=== PATIENT | female | born 1995 | race Caucasian/White ===

== ENCOUNTER 2017-03-22 07:39 | Emergency (ER) | payer OTHER ==
[2017-03-22] MEDS ORDERED: KETOROLAC 60 MG/2 ML VIAL IM STA (08:11)
--- NOTE | 2017-03-22 08:21 | ED ---
Back Pain HPI - General Chief Complaint: Back Pain/Injury Stated Complaint: [facility] Time Seen by Provider: 03/22/17 08:07 Source: patient, RN notes reviewed Limitations: no limitations - History of Present Illness Initial Comments: 21-year-old female presents to the emergency department with a chief complaint of back pain. 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 Patient states that it hurts to move or sit in certain directions. He states it is in her lower back. Patient states that she did not feel a pop. Patient denies any bowel or bladder incontinence. Patient denies any saddle anesthesia. Patient denies any radiation down the legs. Patient states he just feels tight in her back so she thought that she should be evaluated. Patient denies any recent fever, chills, shortness of breath, chest pain, abdominal pain, nausea vomiting, numbness or tingling, dysuria or hematuria, constipation or diarrhea, headaches or visual changes, or any other current symptoms. - Related Data Previous Rx's Medication Instructions Recorded Ibuprofen [Motrin] 600 mg PO Q6HR PRN #20 tab 03/22/17 Orphenadrine [Norflex] 100 mg PO Q12H #10 tablet.er 03/22/17 Allergies Allergy/AdvReac Type Severity Reaction Status Date / Time No Known Allergies Allergy Verified 03/22/17 07:44 Review of Systems ROS Statement: Those systems with pertinent positive or pertinent negative responses have been documented in the HPI. ROS Other: All systems not noted in ROS Statement are negative. Past Medical History Past Medical History: No Reported History History of Any Multi-Drug Resistant Organisms: None Reported Past Surgical History: No Surgical Hx Reported Past Psychological History: No Psychological Hx Reported Smoking Status: Never smoker Past Alcohol Use History: None Reported Past Drug Use History: None Reported General Exam Limitations: no limitations General appearance: alert, in no apparent distress ENT exam: Present: normal exam, mucous membranes moist Neck exam: Present: normal inspection. Absent: tenderness, meningismus, lymphadenopathy Respiratory exam: Present: normal lung sounds bilaterally. Absent: respiratory distress, wheezes, rales, rhonchi, stridor Cardiovascular Exam: Present: regular rate, normal rhythm, normal heart sounds. Absent: systolic murmur, diastolic murmur, rubs, gallop, clicks GI/Abdominal exam: Present: soft, normal bowel sounds. Absent: distended, tenderness, guarding, rebound, rigid Back exam: Present: normal inspection, full ROM, tenderness (Bilateral paraspinal lumbar region), muscle spasm (Bilateral lumbar region), other ( Negative straight leg raise). Absent: vertebral tenderness, rash noted Neurological exam: Present: alert, oriented X3 Psychiatric exam: Present: normal affect, normal mood Skin exam: Present: warm, dry, intact, normal color. Absent: rash Course Vital Signs 03/22/17 07:44 Temperature 98.3 F Pulse Rate 90 Respiratory 20 Rate Blood Pressure 125/72 O2 Sat by Pulse 99 Oximetry Medical Decision Making - Medical Decision Making 21-year-old female presents emergency Department chief complaint of low back pain after lifting a resident. This time x-rays reviewed negative. We discussed additional structures flexor home. We did discuss close follow-up with Dr. katja tirado. We discussed all the patient's questions. She stated that she understood and she is being planned. She'll be discharged - Radiology Data Radiology results: report reviewed, image reviewed Disposition Clinical Impression: Lumbar strain Disposition: HOME SELF-CARE Condition: Stable Instructions: Low Back Strain (ED), Lower Back Exercises (ED) Additional Instructions: Please use medication as discussed. Please follow up with family doctor if symptoms have not improved over the next two days. Please return to the emergency room if your symptoms increase or worsen or for any other concerns. Prescriptions: Ibuprofen [Motrin] 600 mg PO Q6HR PRN #20 tab PRN Reason: Pain Orphenadrine [Norflex] 100 mg PO Q12H #10 tablet.er Referrals: Esther Little MD [Primary Care Provider] - 1-2 days Time of Disposition: 08:53
[2017-03-22] MEDS: ORPHENADRINE 30 MG/ML 2 ML VIAL IM STA ×2 (08:28→08:36)
--- NOTE | 2017-03-22 08:47 | XR ---
EXAMINATION TYPE: XR lumbar spine 2 or 3V DATE OF EXAM: 03/22/2017 COMPARISON: NONE HISTORY: Pain TECHNIQUE: Three-view lumbar spine FINDINGS: There 5 lumbar-type vertebral bodies. The pedicles are intact. Disc heights are preserved. Vertebral body heights are preserved. Limbus vertebra at L4 is present. IMPRESSION: 1. No acute osseous abnormality lumbar spine
[2017-03-22 09:10] VITALS: BP 132/68; PULSE 81; RESP 16; TEMP 97.1
== END 2017-03-22 09:15 | disposition home or self-care (01) ==
LOC: EC 07:39
DX: S39.012A Strain of muscle, fascia and tendon of lower back, initial encounter (principal); M62.830 Muscle spasm of back; X50.0XXA Overexertion from strenuous movement or load, initial encounter; Y99.0 Civilian activity done for income or pay; Y92.69 Other specified industrial and construction area as the place of occurrence of the external cause
CPT/HCPCS: 72100; 99283; 96372; J1885

== ENCOUNTER → 2017-06-17 | Outpatient (CLI) | payer SELFPAY ==
--- NOTE | 2017-06-17 12:35 | US ---
EXAMINATION TYPE: US OB <= 14 wk fetus DATE OF EXAM: 06/17/2017 COMPARISON: NONE CLINICAL HISTORY: Z36 f/u abn US 6 weeks no heartbeat. 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 Single intrauterine gestation estimated at 6 weeks 2 days gestation based on crown-rump length. Ca rdiac activity measures 118 bpm. EDC based on the current ultrasound is 02/08/2018
== END | disposition home or self-care (01) ==
LOC: RADUSWWP 11:09
PROVIDERS: ATTEND Obstetrics & Gynecology
DX: Z36 Encounter for antenatal screening of mother (principal); Z3A.08 8 weeks gestation of pregnancy
CPT/HCPCS: 76801

== ENCOUNTER 2017-07-26 18:00 | Inpatient (IN) | payer BC ==
[2017-07-26] MEDS ORDERED: METOCLOPRAMIDE 5 MG/ML 2 ML VIAL IVP STA (18:27)
[2017-07-26] MEDS ORDERED: SODIUM CHLORIDE 0.9% 2,000 ML IV STA (18:27)
[2017-07-26] MEDS ORDERED: FAMOTIDINE 20 MG/2 ML VIAL IV STA (18:58)
[2017-07-26 18:59] LABS: Basophils % (A) 0 %; CH 28.8; CHCM 34.3; Eosinophils # (A) 0.1 k/uL (0-0.7); Eosinophils % (A) 2 %; HCT 36.9 % (34.0-46.0); HGB 12.3 gm/dL (11.4-16.0); Luc % (Auto) 2; Lymphocytes # (A) 1.3 k/uL (1.0-4.8); Lymphocytes % (A) 20 %; MCH 28.1 pg (25.0-35.0); MCHC 33.4 g/dL (31.0-37.0); MCV 84.3 fL (80.0-100.0); Mean Platelet Volume 7.9; Monocytes # (A) 0.3 k/uL (0-1.0); Monocytes % (A) 4 %; Neutrophils # (A) 4.7 k/uL (1.3-7.7); Neutrophils % (A) 72 %; RBC 4.38 m/uL (3.80-5.40); RDW 13.5 % (11.5-15.5); WBC 6.6 k/uL (4.0-11.0); WBC (Perox) 6.31
--- NOTE | 2017-07-26 19:08 | ED ---
Abdominal Pain HPI - General Chief Complaint: Abdominal Pain Stated Complaint: abd pain; return from yesterday Time Seen by Provider: 07/26/17 18:06 Source: patient, RN notes reviewed Mode of arrival: wheelchair Limitations: no limitations - History of Present Illness Initial Comments: 21-year-old female presents emergency Department with chief complaint of nausea vomiting abdominal pain. 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 Patient was seen here last night was noted to have elevated liver enzymes. Patient states she's gone home and continued to vomit. Patient states she cannot keep anything down. Patient states that she is A0 currently seen Dr. Riley and 12 weeks and 2 days . Patient denies any lower abdominal pain she states she has right upper quadrant and epigastric pain. Patient states she has no vaginal bleeding or vaginal discharge. Denies any dysuria or hematuria. She states that her primary care physician has given her Zofran in the past and she states she was given B6 but states he cannot keep down - Related Data Home Medications Medication Instructions Recorded Confirmed Ondansetron HCl [Zofran] 4 mg PO Q8H PRN 07/25/17 07/26/17 Sertraline [Zoloft] 50 mg PO DAILY 07/25/17 07/26/17 Previous Rx's Medication Instructions Recorded Pyridoxine HCl (Vitamin B6) 100 mg PO BID #20 tablet 07/25/17 [Vitamin B-6] Allergies Allergy/AdvReac Type Severity Reaction Status Date / Time No Known Allergies Allergy Verified 07/26/17 18:08 Review of Systems ROS Statement: Those systems with pertinent positive or pertinent negative responses have been documented in the HPI. ROS Other: All systems not noted in ROS Statement are negative. Past Medical History Past Medical History: No Reported History History of Any Multi-Drug Resistant Organisms: None Reported Past Surgical History: No Surgical Hx Reported Past Psychological History: No Psychological Hx Reported Smoking Status: Never smoker Past Alcohol Use History: None Reported Past Drug Use History: None Reported General Exam Limitations: no limitations General appearance: alert, in no apparent distress Head exam: Present: atraumatic, normocephalic, normal inspection Neck exam: Present: normal inspection, full ROM. Absent: tenderness, meningismus, lymphadenopathy Respiratory exam: Present: normal lung sounds bilaterally. Absent: respiratory distress, wheezes, rales, rhonchi, stridor Cardiovascular Exam: Present: regular rate, normal rhythm, normal heart sounds. Absent: systolic murmur, diastolic murmur, rubs, gallop, clicks GI/Abdominal exam: Present: soft, tenderness (moderate RUQ tenderness, epigastric tenderness), normal bowel sounds. Absent: distended, guarding, rebound, rigid Back exam: Absent: CVA tenderness (R), CVA tenderness (L) Skin exam: Present: warm, dry, intact, normal color. Absent: rash Course Vital Signs 07/26/17 07/26/17 18:02 19:04 Temperature 97.5 F L Pulse Rate 90 Respiratory 20 18 Rate Blood Pressure 129/73 O2 Sat by Pulse 100 Oximetry Medical Decision Making - Lab Data Result diagrams: 07/26/17 18:45 07/26/17 18:45 Lab Results 07/26/17 07/26/17 07/26/17 Range/Units 18:45 18:45 19:12 WBC 6.6 (4.0-11.0) k/uL RBC 4.38 (3.80-5.40) m/uL Hgb 12.3 (11.4-16.0) gm/dL Hct 36.9 (34.0-46.0) % MCV 84.3 (80.0-100.0) fL MCH 28.1 (25.0-35.0) pg MCHC 33.4 (31.0-37.0) g/dL RDW 13.5 (11.5-15.5) % Plt Count 228 (150-450) k/uL Neutrophils % 72 % Lymphocytes % 20 % Monocytes % 4 % Eosinophils % 2 % Basophils % 0 % Neutrophils # 4.7 (1.3-7.7) k/uL Lymphocytes # 1.3 (1.0-4.8) k/uL Monocytes # 0.3 (0-1.0) k/uL Eosinophils # 0.1 (0-0.7) k/uL Basophils # 0.0 (0-0.2) k/uL Sodium 138 (137-145) mmol/L Potassium 4.2 (3.5-5.1) mmol/L Chloride 111 H (98-107) mmol/L Carbon Dioxide 14 L (22-30) mmol/L Anion Gap 13 mmol/L BUN <2 L (7-17) mg/dL Creatinine 0.38 L (0.52-1.04) mg/dL Est GFR (MDRD) Af Amer >60 (>60 ml/min/1.73 sqM) Est GFR (MDRD) Non-Af >60 (>60 ml/min/1.73 sqM) Glucose 81 (74-99) mg/dL Calcium 9.3 (8.4-10.2) mg/dL Total Bilirubin 1.2 (0.2-1.3) mg/dL AST 94 H (14-36) U/L ALT 154 H (9-52) U/L Alkaline Phosphatase 101 (38-126) U/L Total Protein 7.5 (6.3-8.2) g/dL Albumin 4.0 (3.5-5.0) g/dL Amylase 55 (30-110) U/L Lipase 420 H (23-300) U/L Urine Color Dark Yellow Urine Appearance Clear (Clear) Urine pH 6.5 (5.0-8.0) Ur Specific [place] 1.019 (1.001-1.035) Urine Protein 1+ H (Negative) Urine Glucose (UA) Negative (Negative) Urine Ketones 4+ H (Negative) Urine Blood Negative (Negative) Urine Nitrite Negative (Negative) Urine Bilirubin 1+ H (Negative) Urine Urobilinogen 8.0 (<2.0) mg/dL Ur Leukocyte Esterase Negative (Negative) Urine WBC 3 (0-5) /hpf Ur Squamous Epith Cells 4 (0-4) /hpf Urine Bacteria Rare H (None) /hpf Urine Mucus Few H (None) /hpf Disposition Clinical Impression: Cholelithiasis, Nausea & vomiting, Dehydration Disposition: ADMITTED IP TO THIS [facility] Condition: Stable Referrals: Esther Little MD [Primary Care Provider] - 1-2 days
[2017-07-26 19:38] LABS: Amylase 55 U/L (30-110); Anion Gap 13 mmol/L; Calcium 9.3 mg/dL (8.4-10.2); Carbon Dioxide 14 mmol/L (22-30); Chloride 111 mmol/L (98-107); Glucose 81 mg/dL (74-99); Non-African American GFR(MDRD) >60 (>60 ml/min/1.73 sqM); Sodium 138 mmol/L (137-145)
[2017-07-26 19:43] LABS: Appearance,Urine Clear (Clear); Bacteria,Urine Rare /hpf; Bilirubin,Urine 1+ (Negative); Glucose,Urine (UA) Negative (Negative); Ketones,Urine 4+ (Negative); Leukocyte Esterase,Urine Negative (Negative); Mucus,Urine Few /hpf; Nitrite,Urine Negative (Negative); PH, Urine 6.5 (5.0-8.0); Particle Count 6310; Protein,Urine 1+ (Negative); Specific Gravity,Urine 1.019 (1.001-1.035); Squamous Epithelial Cell,Urine 4 /hpf (0-4); UA Billing (MACRO vs. MICRO) MICRO; WBC,Urine 3 /hpf (0-5)
[2017-07-26 19:51] LABS: AST 94 U/L (14-36); Blood Urea Nitrogen <2 mg/dL (7-17); Potassium 4.2 mmol/L (3.5-5.1); Total Protein 7.5 g/dL (6.3-8.2)
[2017-07-26 19:52] LABS: ALT 154 U/L (9-52); Alkaline Phosphatase 101 U/L (38-126); Total Bilirubin 1.2 mg/dL (0.2-1.3)
--- NOTE | 2017-07-26 19:59 | US ---
EXAMINATION TYPE: US abdomen limited DATE OF EXAM: 07/26/2017 COMPARISON: NONE CLINICAL HISTORY: Abdominal pain with nausea and vomiting x 2 weeks getting worse x 2 days. She was t old her liver and GB levels were elevated yesterday, but is still not feeling better today.. Pt is 12 weeks . EXAM MEASUREMENTS: Liver Length: 13.4 cm Gallbladder Wall: 0.3 cm CBD: 0.3 cm Right Kidney: 9.2 x 4.2 x 4.4 cm Limited due to pt unable to hold breath well and limited cooperation due to pain. Pancreas: Obscured by bowel gas, parts visualized appear wnl Liver: appears wnl Gallbladder: Appears to have echogenic debris within likely sludge, no distinct cholelithiasis noted Evidence for sonographic Stockton's sign: Yes CBD: appears wnl Right Kidney: appears wnl IMPRESSION: No dilated ducts. Echogenic bile. There is some shadowing at the gallbladder neck and gal lstone cannot be entirely excluded. No focal liver defect. No ascites.
[2017-07-26] MEDS ORDERED: PIPERACILLIN-TAZOBACTAM 3.375 GM in DEXTROSE/WATER 1 50ML.BAG IVPB STA (20:51)
[2017-07-26] MEDS: DEXTROSE 5%-0.45% NACL 1,000 ML IV SCH (21:42)
[2017-07-26 22:20] VITALS: BMI 24.3
[2017-07-26] MEDS: PYRIDOXINE 50 MG TAB PO SCH (22:50)
[2017-07-27] MEDS: ACETAMINOPHEN TAB 325 MG TAB PO PRN (01:25)
[2017-07-27] MEDS: METOCLOPRAMIDE 5 MG/ML 2 ML VIAL IVP PRN ×2 (03:16→09:37)
[2017-07-27] MEDS: DEXTROSE 5%-0.45% NACL 1,000 ML IV SCH ×2 (08:57→21:21)
[2017-07-27] MEDS: PYRIDOXINE 50 MG TAB PO SCH ×2 (09:35→21:21)
--- NOTE | 2017-07-27 11:42 | P.OBCN ---
History of Present Illness Consult date: 07/27/17 Requesting physician: Rebecca Young Reason for consult: early problem, other Chief complaint: upper abdominal pain History of present illness: This is a 21-year-old female 1 para 0 with an estimated date of confinement of 02/08/2018, estimated gestational age ofapproximately 12 weeks, who presents to the emergency room with complaints of nausea and vomiting and right upper quadrant and epigastric abdominal pain for the last 2 days. She was seen in the emergency room yesterday and was told that her liver enzymes were slightly elevated. She returned to the emergency room last night when she started feeling worse abdominal pain and continued to have nausea and vomiting. She has experienced nausea and vomiting early on in her but this was worse than her normal nausea and vomiting. She denies any lower abdominal pain or vaginal bleeding. She was seen by Dr. Riley in the office on and heart tones were obtained at that time. She did have an abdominal ultrasound that showed questionable sludge in the gallbladder.her liver enzymes were elevated along with an elevated lipase. She currently states her abdominal pain is somewhat better but still present. She is still having some nausea but is very hungry. Review of Systems Constitutional: Reports weakness, Denies chills, Denies fever Gastrointestinal: Reports abdominal pain (right upper quadrant and epigastric), Reports nausea, Reports vomiting, Denies change in bowel habits, Denies loss of appetite Genitourinary: Reports , Denies abnormal vaginal bleeding, Denies pelvic pain Musculoskeletal: Denies low back pain Psychiatric: Reports depression (did start taking Zoloft but only took it for 1 day before her nausea and vomiting started and therefore she stopped it.) Past Medical History Past Medical History: No Reported History History of Any Multi-Drug Resistant Organisms: None Reported Past Surgical History: No Surgical Hx Reported Past Psychological History: Depression Smoking Status: Never smoker Past Alcohol Use History: None Reported Past Drug Use History: None Reported - Past Family History Mother Family Medical History: No Reported History Medications and Allergies Home Medications Medication Instructions Recorded Confirmed Type Ondansetron HCl [Zofran] 4 mg PO Q8H PRN 07/25/17 07/26/17 History Pyridoxine HCl (Vitamin B6) 100 mg PO BID #20 tablet 07/25/17 07/26/17 Rx [Vitamin B-6] Sertraline [Zoloft] 50 mg PO DAILY 07/25/17 07/26/17 History Allergies Allergy/AdvReac Type Severity Reaction Status Date / Time No Known Allergies Allergy Verified 07/26/17 18:08 Exam Osteopathic Statement: *. No significant issues noted on an osteopathic structural exam other than those noted in the History and Physical/Consult. - Vital Signs Vital signs: Vital Signs Temp Pulse Pulse Resp BP BP Pulse Ox 07/27/17 07:40 97.8 F 98 18 111/66 98 07/26/17 23:00 97.9 F 72 18 114/68 99 07/26/17 19:04 18 07/26/17 18:02 97.5 F L 90 20 129/73 100 Intake and Output 07/26/17 07/27/17 07/27/17 23:59 06:59 14:59 Intake Total Balance Intake: Oral Other: # Voids 1 Weight - OBG Physical Exam Abdomen: bowel sounds normal Abdomen detail: right upper quadrant: tenderness Results Result Diagrams: 07/26/17 18:45 07/26/17 18:45 Abnormal Lab Results - Last 24 Hours (Table) 07/26/17 07/26/17 Range/Units 18:45 19:12 Chloride 111 H (98-107) mmol/L Carbon Dioxide 14 L (22-30) mmol/L BUN <2 L (7-17) mg/dL Creatinine 0.38 L (0.52-1.04) mg/dL AST 94 H (14-36) U/L ALT 154 H (9-52) U/L Lipase 420 H (23-300) U/L Urine Protein 1+ H (Negative) Urine Ketones 4+ H (Negative) Urine Bilirubin 1+ H (Negative) Urine Bacteria Rare H (None) /hpf Urine Mucus Few H (None) /hpf Assessment and Plan (1) Intrauterine , incidental Current Visit: Yes Status: Acute Code(s): Z34.90 - ENCNTR FOR SUPRVSN OF NORMAL , UNSP, UNSP TRIMESTER SNOMED Code(s): 08472176 (2) Abdominal pain, acute, right upper quadrant Current Visit: Yes Status: Acute Code(s): R10.11 - RIGHT UPPER QUADRANT PAIN SNOMED Code(s): 720660451 (3) Dehydration Current Visit: Yes Status: Acute Code(s): E86.0 - DEHYDRATION SNOMED Code( s): 14215357 (4) Nausea & vomiting Current Visit: Yes Status: Acute Code(s): R11.2 - NAUSEA WITH VOMITING, UNSPECIFIED SNOMED Code(s): 81372201 Plan: Impression is right upper quadrant abdominal pain along with nausea and vomiting , possible cholelithiasis. Incidental . As far as the goes no intervention is necessary at this time. When she is able to tolerate food, she may restart her vitamin. Will defer to general surgery regarding need for possible surgery. At this stage of if she does need laparoscopic surgery, it is okay. Would need to obtain Doppler heart tones before and after surgery if it is required. Please do not hesitate to contact me if you have any further questions or concerns.
--- NOTE | 2017-07-27 13:41 | P.GSHP ---
History of Present Illness H&P Date: 07/27/17 Chief Complaint: Right upper quadrant abdominal pain The patient is a 21-year-old female, who is at least 12 weeks , who presents with 3-4 days of abdominal pain along the epigastrium. She had been eating spanish toast sticks with butter as well as TV dinners and drinking moderate amount of whole milk. Her boyfriend is at bedside who corroborates her dietary history. She denies any family history of gallbladder disease. She also has history of morning sickness. She reported intractable nausea vomiting at the time of presentation to the ER upon her 1st and 2nd presentation which caused moderate abdominal pain including of the right upper quadrant. She completed an ultrasound with findings of potential gallstones. Given her repeat presentation to the emergency room as well as findings, she was admitted. Since admission however her abdominal pain has moderately improved. In fact, she has an appetite and is very hungry. She reported moderate to severe bandlike pain extending from the right upper quadrant to left upper quadrant which is now moderately improved and resolved. - Review of Systems Comment: REVIEW OF ORGAN SYSTEMS: CONSTITUTIONAL: Denies any fever or chills. Denies recent weight loss or weight gain. HEENT: Denies any trouble with vision, hearing or nosebleeds. No difficulty swallowing. LYMPHATIC: The patient denies any lumps and bumps around the neck. ENDOCRINE: Denies any thyroid disorders. Denies any blood sugar glucose intolerance. RESPIRATORY: Denies pneumonia. Denies any troubles with breathing or dyspnea on exertion. CARDIOVASCULAR: Denies any chest pain, palpitations, or recent heart attacks. GASTROINTESTINAL: History morning sickness. No blood in stools. Recent finding of gallstones. GENITOURINARY: Denies any blood in urine or increased urinary frequency. MUSCULOSKELETAL: Denies any back pain, stiffness, joint arthritis. NEUROLOGIC: Denies any numbness or tingling along the distal extremities. No seizure disorders or headaches. PSYCHIATRIC: Has depression. No suidical ideation. HEMATOLOGIC: Denies any abnormal bleeding or bruising. Past Medical History Past Medical History: No Reported History History of Any Multi-Drug Resistant Organisms: None Reported Past Surgical History: No Surgical Hx Reported Past Psychological History: Depression Smoking Status: Never smoker Past Alcohol Use History: None Reported Past Drug Use History: None Reported - Past Family History Mother Family Medical History: No Reported History Medications and Allergies Home Medications Medication Instructions Recorded Confirmed Type Ondansetron HCl [Zofran] 4 mg PO Q8H PRN 07/25/17 07/26/17 History RX: Pyridoxine HCl (Vitamin B6) 100 mg PO BID #20 tablet 07/25/17 07/26/17 Rx [Vitamin B-6] Sertraline [Zoloft] 50 mg PO DAILY 07/25/17 07/26/17 History Allergies Allergy/AdvReac Type Severity Reaction Status Date / Time No Known Allergies Allergy Verified 07/26/17 18:08 Surgical - Exam Vital Signs Temp Pulse Resp BP Pulse Ox 97.5 F L 90 20 129/73 100 07/26/17 18:02 07/26/17 18:02 07/26/17 18:02 07/26/17 18:02 07/26/17 18:02 GENERAL: Well developed and in no acute distress. Pleasant. HEENT: No sclera icterus. Extraocular movements grossly intact. Moist buccal mucosa. Head is atraumatic, normocephalic. Hears conversational speech. No nasal drainage. NECK: Supple without lymphadenopathy. No JV distention. CHEST: Non-labored respirations and equal bilateral excursions. CARDIOVASCULAR: Regular rate and rhythm. Palpable 2+ radial pulses. ABDOMEN: Soft. Nondistended. Minimal tenderness along the epigastrium. Tenderness along the right rib cage. No peritonitis. No guarding. MUSCULOSKELETAL: No clubbing, cyanosis or edema. NEUROLOGIC: No focal or lateralizing signs. PSYCH: Appropriate affect. Alert and oriented to person, place and time. SKIN: Good skin turgor. Well perfused. Results - Labs 07/26/17 18:45 07/26/17 18:45 Abnormal Lab Results - Last 24 Hours (Table) 07/26/17 07/26/17 Range/Units 18:45 19:12 Chloride 111 H (98-107) mmol/L Carbon Dioxide 14 L (22-30) mmol/L BUN <2 L (7-17) mg/dL Creatinine 0.38 L (0.52-1.04) mg/dL AST 94 H (14-36) U/L ALT 154 H (9-52) U/L Lipase 420 H (23-300) U/L Urine Protein 1+ H (Negative) Urine Ketones 4+ H (Negative) Urine Bilirubin 1+ H (Negative) Urine Bacteria Rare H (None) /hpf Urine Mucus Few H (None) /hpf Diabetes panel 07/26/17 Range/Units 18:45 Sodium 138 (137-145) mmol/L Potassium 4.2 (3.5-5.1) mmol/L Chloride 111 H (98-107) mmol/L Carbon Dioxide 14 L (22-30) mmol/L BUN <2 L (7-17) mg/dL Creatinine 0.38 L (0.52-1.04) mg/dL Glucose 81 (74-99) mg/dL Calcium 9.3 (8.4-10.2) mg/dL AST 94 H (14-36) U/L ALT 154 H (9-52) U/L Alkaline Phosphatase 101 (38-126) U/L Total Protein 7.5 (6.3-8.2) g/dL Albumin 4.0 (3.5-5.0) g/dL Calcium panel 07/26/17 Range/Units 18:45 Calcium 9.3 (8.4-10.2) mg/dL Albumin 4.0 (3.5-5.0) g/dL Pituitary panel 07/26/17 Range/Units 18:45 Sodium 138 (137-145) mmol/L Potassium 4.2 (3.5-5.1) mmol/L Chloride 111 H (98-107) mmol/L Carbon Dioxide 14 L (22-30) mmol/L BUN <2 L (7-17) mg/dL Creatinine 0.38 L (0.52-1.04) mg/dL Glucose 81 (74-99) mg/dL Calcium 9.3 (8.4-10.2) mg/dL Adrenal panel 07/26/17 Range/Units 18:45 Sodium 138 (137-145) mmol/L Potassium 4.2 (3.5-5.1) mmol/L Chloride 111 H (98-107) mmol/L Carbon Dioxide 14 L (22-30) mmol/L BUN <2 L (7-17) mg/dL Creatinine 0.38 L (0.52-1.04) mg/dL Glucose 81 (74-99) mg/dL Calcium 9.3 (8.4-10.2) mg/dL Total Bilirubin 1.2 (0.2-1.3) mg/dL AST 94 H (14-36) U/L ALT 154 H (9-52) U/L Alkaline Phosphatase 101 (38-126) U/L Total Protein 7.5 (6.3-8.2) g/dL Albumin 4.0 (3.5-5.0) g/dL - Imaging US - abdomen: report reviewed (Echoing and shadowing along the gallbladder identified. Gallbladder wall thickness less than 3 mm. I personally reviewed her films.), image reviewed Assessment and Plan (1) Epigastric abdominal pain Current Visit: Yes Status: Acute Code(s): R10.13 - EPIGASTRIC PAIN SNOMED Code(s): 63355287 (2) Pancreatitis, gallstone Current Visit: Yes Status: Acute Code(s): K85.10 - BILIARY ACUTE PANCREATITIS WITHOUT NECROSIS OR INFECTION SNOMED Code(s): 32262870 (3) Abdominal pain, acute, right upper quadrant Current Visit: Yes Status: Acute Code(s): R10.11 - RIGHT UPPER QUADRANT PAIN SNOMED Code(s): 429124193 (4) Cholelithiasis Current Visit: Yes Status: Acute Code(s): K80.20 - CALCULUS OF GALLBLADDER W /O CHOLECYSTITIS W/O OBSTRUCTION SNOMED Code(s): 365653170 (5) Dehydration Current Visit: Yes Status: Acute Code(s): E86.0 - DEHYDRATION SNOMED Code( s): 94475155 (6) Intrauterine , incidental Current Visit: Yes Status: Acute Code(s): Z34.90 - ENCNTR FOR SUPRVSN OF NORMAL , UNSP, UNSP TRIMESTER SNOMED Code(s): 08144005 (7) Nausea & vomiting Current Visit: Yes Status: Acute Code(s): R11.2 - NAUSEA WITH VOMITING, UNSPECIFIED SNOMED Code(s): 62595455 (8) Hyperemesis Current Visit: No Status: Acute Code(s): R11.10 - VOMITING, UNSPECIFIED SNOMED Code(s): 648792314 (9) Vitamin B6 deficiency Current Visit: Yes Status: Acute Code(s): E53.1 - PYRIDOXINE DEFICIENCY SNOMED Code(s): 024772262 (10) Dietary counseling Current Visit: Yes Status: Acute Code(s): Z71.3 - DIETARY COUNSELING AND SURVEILLANCE SNOMED Code(s): 391134437 Plan: 1. Laboratory results were reviewed consistent with elevated lipase and hence mild pancreatitis. Etiology likely secondary to gallstone related. 2. I had an extensive discussion with her family including boyfriend at bedside of strict low fat diet to avoid additional attacks. She was advised to avoid whole milk products including butterr which would exacerbate her symptoms. 3. As her abdominal pain has improved, no acute surgical intervention at this time. 4. Repeat lipase levels. 5. An extensive discussion regarding remedies for nausea and vomiting including using Liza, peppermint, lemon water, and staying well-hydrated was reviewed. 6. Elective laparoscopic cholecystectomy advised. 7. Discharge home today pending tolerating liquid diet and repeat lipase levels. Time with Patient: Greater than 30
--- NOTE | 2017-07-27 13:45 | P.DS ---
Providers Date of admission: 07/26/17 20:51 Expected date of discharge: 07/27/17 Attending physician: Rebecca Young Consults: 07/26/17 20:28 Consult Physician Stat Consulting Provider: Corazon Riley Consult Reason/Comments: Do you want consulting provider notified?: Yes Primary care physician: Esther Little - Discharge Diagnosis(es) (1) Epigastric abdominal pain Current Visit: Yes Status: Acute (2) Pancreatitis, gallstone Current Visit: Yes Status: Acute (3) Abdominal pain, acute, right upper quadrant Current Visit: Yes Status: Acute (4) Cholelithiasis Current Visit: Yes Status: Acute (5) Dehydration Current Visit: Yes Status: Acute (6) Intrauterine , incidental Current Visit: Yes Status: Acute (7) Nausea & vomiting Current Visit: Yes Status: Acute (8) Hyperemesis Current Visit: No Status: Acute (9) Vitamin B6 deficiency Current Visit: Yes Status: Acute (10) Dietary counseling Current Visit: Yes Status: Acute Hospital Course: The patient is a 21-year-old female, who is at least 12 weeks , who presents with 3-4 days of abdominal pain along the epigastrium. She had been eating sinhala toast sticks with butter as well as TV dinners and drinking moderate amount of whole milk. Her boyfriend is at bedside who corroborates her dietary history. She denies any family history of gallbladder disease. She also has history of morning sickness. She reported intractable nausea vomiting at the time of presentation to the ER upon her 1st and 2nd presentation which caused moderate abdominal pain including of the right upper quadrant. She completed an ultrasound with findings of potential gallstones. Given her repeat presentation to the emergency room as well as findings, she was admitted. Since admission however her abdominal pain has moderately improved. In fact, she has an appetite and is very hungry. She reported moderate to severe bandlike pain extending from the right upper quadrant to left upper quadrant which is now moderately improved and resolved. Pertinent Studies: Ultrasound of the abdomen demonstrating gallstones. Patient Condition at Discharge: Stable Plan - Discharge Summary Discharge Rx Participant: No New Discharge Prescriptions: No Action Sertraline [Zoloft] 50 mg PO DAILY Ondansetron HCl [Zofran] 4 mg PO Q8H PRN PRN Reason: Nausea Pyridoxine HCl (Vitamin B6) [Vitamin B-6] 100 mg PO BID #20 tablet Discharge Medication List Ondansetron HCl [Zofran] 4 mg PO Q8H PRN 07/25/17 [History] Pyridoxine HCl (Vitamin B6) [Vitamin B-6] 100 mg PO BID #20 tablet 07/25/17 [Rx] Sertraline [Zoloft] 50 mg PO DAILY 07/25/17 [History] Follow up Appointment(s)/Referral(s): Rebecca Young MD [STAFF PHYSICIAN] - 08/05/17 (Please call to confirm time) Esther Little MD [Primary Care Provider] - 1-2 days Patient Instructions/Handouts: Nausea and Vomiting in (GEN), Biliary Colic (GEN), Low Fat Diet (DC) Activity/Diet/Wound Care/Special Instructions: Recommend fat-free diet until of her baby. For nausea, recommend daily Liza tea, peppermint tea, and/or lemon water including staying well-hydrated. Discharge Disposition: HOME SELF-CARE
--- NOTE | 2017-07-27 15:07 | P.PN ---
Progress Note - Text Progress Note Date: 07/27/17 Repeat lipase levels were obtained demonstrating triple value consistent with pancreatitis. Recommend for inpatient admission until resolution of pancreatitis. Patient will be nothing by mouth after midnight.
[2017-07-27] MEDS: FAMOTIDINE 20 MG TAB PO SCH (18:14)
[2017-07-28] MEDS: METOCLOPRAMIDE 5 MG/ML 2 ML VIAL IVP PRN (03:15)
[2017-07-28 06:51] LABS: ALT 150 U/L (9-52); AST 76 U/L (14-36); Alkaline Phosphatase 85 U/L (38-126); Anion Gap 8 mmol/L; Blood Urea Nitrogen <2 mg/dL (7-17); Calcium 8.8 mg/dL (8.4-10.2); Carbon Dioxide 19 mmol/L (22-30); Chloride 108 mmol/L (98-107); Glucose 85 mg/dL (74-99); Non-African American GFR(MDRD) >60 (>60 ml/min/1.73 sqM); Sodium 135 mmol/L (137-145); Total Protein 5.7 g/dL (6.3-8.2)
[2017-07-28 06:57] LABS: Potassium 2.9 mmol/L (3.5-5.1)
[2017-07-28] MEDS ORDERED: SODIUM CHLORIDE 0.9% 1,000 ML IV ONE (07:54)
[2017-07-28] MEDS: FAMOTIDINE 20 MG TAB PO SCH ×2 (08:47→20:17)
[2017-07-28] MEDS: PYRIDOXINE 50 MG TAB PO SCH ×2 (08:48→20:25)
--- NOTE | 2017-07-28 08:50 | P.PN ---
Progress Note - Text Progress Note Date: 07/28/17 21 year old at around 12 weeks admitted with pancreatitis. Her pain comes and goes still. The lipase is coming down now but remains elevated. Pt is NPO but states she is hungry. no movement yet which is expected. no cramping or bleeding. Continue current management.-replace electrolytes.
[2017-07-28] MEDS: POTASSIUM CHLORIDE 10 MEQ, LIDOCAINE 2% INJ 10 MG in SODIUM CHLORIDE 0.9% 100 ML IVPB SCH ×4 (09:56→14:14)
--- NOTE | 2017-07-28 12:02 | P.PN ---
<Fallon Jolley - Last Filed: 07/28/17 11:46> Subjective Progress Note Date: 07/28/17 21-year-old female seen and examined at bedside. Continues to report intermittent episodes of abdominal pain but less frequent Patient complains of "thirsty Did note that the potassium is 2.9 this morning in which replacement will be given the lipase this morning 847. Yesterday's lipase 1149. Patient reports no nausea vomiting states no frequent stooling and no difficulty in urinating Patient is 1 para 0 estimated date of confinement of 02/08/18 CHILD & ADOLESCENT PSYCHIATRIST' s recommendations noted and appreciated Objective - Vital Signs Vital signs: Vital Signs Temp 97.7 F 07/28/17 10:50 Pulse 80 07/28/17 10:50 Resp 16 07/28/17 10:50 BP 110/69 07/28/17 10:50 Pulse Ox 98 07/28/17 10:50 Intake & Output 07/27/17 07/28/17 07/28/17 18:59 06:59 18:59 Other: # Voids 1 1 - Exam GENERAL APPEARANCE: 21 -year-old female patient is alert, oriented, in no acute distress. VITAL SIGNS: Reviewed HEENT: Head is normocephalic and atraumatic. Pupils are equal and reactive. The nares are patent. Oropharynx is clear without lesions. NECK: Supple without lymphadenopathy. Traches midline. HEART: S1, S2. Regular rate and rhythm. Denies chest pain LUNGS: No crackles or wheezes are heard. Adequate air movement bilaterally on room air ABDOMEN: Soft, slight tenderness right upper quadrant nondistended with good bowel sounds. No peritoneal signs. No palpable organomegaly or masses. EXTREMITIES: Normal skin color and turgor. No cyanosis, rash, ulceration, clubbing or edema. Radial pedal pulses are 2/4 bilaterally. NEUROLOGICAL: No focal deficits. Strength and sensation are grossly intact. - Labs CBC & Chem 7: 07/26/17 18:45 07/28/17 05:53 Labs: Abnormal Lab Results - Last 24 Hours (Table) 07/27/17 07/28/17 Range/Units 14:12 05:53 Sodium 135 L (137-145) mmol/L Potassium 2.9 L* (3.5-5.1) mmol/L Chloride 108 H (98-107) mmol/L Carbon Dioxide 19 L (22-30) mmol/L BUN <2 L (7-17) mg/dL Creatinine 0.40 L (0.52-1.04) mg/dL AST 76 H (14-36) U/L ALT 150 H (9-52) U/L Total Protein 5.7 L (6.3-8.2) g/dL Albumin 2.9 L (3.5-5.0) g/dL Lipase 1149 H 847 H (23-300) U/L Microbiology - Last 24 Hours (Table) 07/26/17 21:40 Blood Culture - Preliminary Blood No Growth after 24 hours Assessment and Plan Assessment: Assessment and Plan (1) Epigastric abdominal pain Current Visit: Yes Status: Acute Code(s): R10.13 - EPIGASTRIC PAIN SNOMED Code(s): 24074793 (2) Pancreatitis, gallstone Current Visit: Yes Status: Acute Code(s): K85.10 - BILIARY ACUTE PANCREATITIS WITHOUT NECROSIS OR INFECTION SNOMED Code(s): 86808930 (3) Abdominal pain, acute, right upper quadrant Current Visit: Yes Status: Acute Code(s): R10.11 - RIGHT UPPER QUADRANT PAIN SNOMED Code(s): 371133245 (4) Cholelithiasis Current Visit: Yes Status: Acute Code(s): K80.20 - CALCULUS OF GALLBLADDER W /O CHOLECYSTITIS W/O OBSTRUCTION SNOMED Code(s): 322676223 (5) Dehydration Current Visit: Yes Status: Acute Code(s): E86.0 - DEHYDRATION SNOMED Code( s): 88952900 (6) Intrauterine , incidental Current Visit: Yes Status: Acute Code(s): Z34.90 - ENCNTR FOR SUPRVSN OF NORMAL , UNSP, UNSP TRIMESTER SNOMED Code(s): 41986882 (7) Nausea & vomiting Current Visit: Yes Status: Acute Code(s): R11.2 - NAUSEA WITH VOMITING, UNSPECIFIED SNOMED Code(s): 06525102 (8) Hyperemesis Current Visit: No Status: Acute Code(s): R11.10 - VOMITING, UNSPECIFIED SNOMED Code(s): 602262154 (9) Vitamin B6 deficiency Current Visit: Yes Status: Acute Code(s): E53.1 - PYRIDOXINE DEFICIENCY SNOMED Code(s): 673861724 #10 electrolyte abnormality hypokalemic potassium replaced will recheck labs in the morning The above impression and plan of care have been discussed and directed by signing physician. Fallon Jolley nurse practitioner acting as scribe for signing physician. <HannahRebecca N - Last Filed: 07/28/17 12:41> Objective - Vital Signs Vital signs: Vital Signs Temp 97.7 F 07/28/17 10:50 Pulse 80 07/28/17 10:50 Resp 16 07/28/17 10:50 BP 110/69 07/28/17 10:50 Pulse Ox 98 07/28/17 10:50 Intake & Output 07/27/17 07/28/17 07/28/17 18:59 06:59 18:59 Other: # Voids 1 1 - Labs CBC & Chem 7: 07/26/17 18:45 07/28/17 05:53 Labs: Abnormal Lab Results - Last 24 Hours (Table) 07/27/17 07/28/17 Range/Units 14:12 05:53 Sodium 135 L (137-145) mmol/L Potassium 2.9 L* (3.5-5.1) mmol/L Chloride 108 H (98-107) mmol/L Carbon Dioxide 19 L (22-30) mmol/L BUN <2 L (7-17) mg/dL Creatinine 0.40 L (0.52-1.04) mg/dL AST 76 H (14-36) U/L ALT 150 H (9-52) U/L Total Protein 5.7 L (6.3-8.2) g/dL Albumin 2.9 L (3.5-5.0) g/dL Lipase 1149 H 847 H (23-300) U/L Microbiology - Last 24 Hours (Table) 07/26/17 21:40 Blood Culture - Preliminary Blood No Growth after 24 hours Assessment and Plan (1) Epigastric abdominal pain Current Visit: Yes Status: Acute Code(s): R10.13 - EPIGASTRIC PAIN SNOMED Code(s): 69701559 (2) Pancreatitis, gallstone Current Visit: Yes Status: Acute Code(s): K85.10 - BILIARY ACUTE PANCREATITIS WITHOUT NECROSIS OR INFECTION SNOMED Code(s): 93884417 (3) Abdominal pain, acute, right upper quadrant Current Visit: Yes Status: Acute Code(s): R10.11 - RIGHT UPPER QUADRANT PAIN SNOMED Code(s): 229383591 (4) Cholelithiasis Current Visit: Yes Status: Acute Code(s): K80.20 - CALCULUS OF GALLBLADDER W /O CHOLECYSTITIS W/O OBSTRUCTION SNOMED Code(s): 088445995 (5) Dehydration Current Visit: Yes Status: Acute Code(s): E86.0 - DEHYDRATION SNOMED Code( s): 54999497 (6) Intrauterine , incidental Current Visit: Yes Status: Acute Code(s): Z34.90 - ENCNTR FOR SUPRVSN OF NORMAL , UNSP, UNSP TRIMESTER SNOMED Code(s): 05845929 (7) Nausea & vomiting Current Visit: Yes Status: Acute Code(s): R11.2 - NAUSEA WITH VOMITING, UNSPECIFIED SNOMED Code(s): 39880232 (8) Hyperemesis Current Visit: No Status: Acute Code(s): R11.10 - VOMITING, UNSPECIFIED SNOMED Code(s): 885640486 (9) Vitamin B6 deficiency Current Visit: Yes Status: Acute Code(s): E53.1 - PYRIDOXINE DEFICIENCY SNOMED Code(s): 359807399 (10) Dietary counseling Current Visit: Yes Status: Acute Code(s): Z71.3 - DIETARY COUNSELING AND SURVEILLANCE SNOMED Code(s): 505986448
[2017-07-28] MEDS: DEXTROSE 5%-0.45% NACL 1,000 ML IV SCH (15:25)
[2017-07-28] MEDS ORDERED: Potassium Replacement Protocol 1 EACH MISC MISCELLANE PRN (19:55)
[2017-07-28] MEDS ORDERED: POTASSIUM CHLORIDE 10 MEQ, LIDOCAINE 2% INJ 10 MG in SODIUM CHLORIDE 0.9% 100 ML IV SCH (20:00)
[2017-07-28] MEDS: 0.9% NACL WITH KCL 20 MEQ/L 1,000 ML IV SCH (20:16)
[2017-07-28] MEDS: POTASSIUM CHLORIDE ER 20 MEQ TAB.ER PO SCH ×2 (20:17→21:29)
[2017-07-29] MEDS: ACETAMINOPHEN TAB 325 MG TAB PO PRN (03:31)
[2017-07-29 06:47] LABS: ALT 172 U/L (9-52); AST 84 U/L (14-36); Alkaline Phosphatase 92 U/L (38-126); Anion Gap 10 mmol/L; Blood Urea Nitrogen <2 mg/dL (7-17); Calcium 9.1 mg/dL (8.4-10.2); Carbon Dioxide 17 mmol/L (22-30); Chloride 110 mmol/L (98-107); Glucose 70 mg/dL (74-99); Magnesium 1.4 mg/dL (1.6-2.3); Non-African American GFR(MDRD) >60 (>60 ml/min/1.73 sqM); Potassium 3.8 mmol/L (3.5-5.1); Sodium 137 mmol/L (137-145); Total Bilirubin 0.8 mg/dL (0.2-1.3)
[2017-07-29] MEDS: FAMOTIDINE 20 MG TAB PO SCH ×2 (10:11→21:29)
[2017-07-29] MEDS: PYRIDOXINE 50 MG TAB PO SCH ×2 (10:11→21:29)
[2017-07-29] MEDS: MAGNESIUM SULFATE-D5W PMX 1 GM in DEXTROSE/WATER 1 100ML.BAG IVPB SCH ×5 (10:12→23:40)
[2017-07-29] MEDS: 0.9% NACL WITH KCL 20 MEQ/L 1,000 ML IV SCH (10:16)
[2017-07-29] MEDS ORDERED: PROMETHAZINE INJ 25 MG/ML 1 ML VIAL IM PRN (13:03)
--- NOTE | 2017-07-29 15:11 | P.PN ---
<Fallon Jolley Mary - Last Filed: 07/29/17 15:05> Subjective Progress Note Date: 07/29/17 A 21-year-old female seen and examined at bedside. Patient continues to report having tenderness across the bilateral lower abdominal wall with a nausea sensation with dry heaves did note the magnesium is low this morning 1.4 being followed by CABLE LAYER with recommendations noted and appreciated patient is 1 para 0 estimated date of confinement of 02/08/18 Objective - Vital Signs Vital signs: Vital Signs Temp 97.9 F 07/29/17 08:00 Pulse 72 07/29/17 08:00 Resp 18 07/29/17 08:00 BP 101/54 07/29/17 08:00 Pulse Ox 99 07/29/17 08:00 Intake & Output 07/28/17 07/29/17 07/29/17 18:59 06:59 18:59 Intake Total 240 Balance 240 Weight 60.4 kg Intake: Oral 240 Other: # Voids 3 1 - Exam GENERAL APPEARANCE: 21 -year-old female patient is alert, eating up in bed reports a nausea sensation with dry heaves states " abdominal pain feels the same " VITAL SIGNS: Reviewed HEENT: Head is normocephalic and atraumatic. Pupils are equal and reactive. The nares are patent. Oropharynx is clear without lesions. NECK: Supple without lymphadenopathy. Traches midline. HEART: S1, S2. Regular rate and rhythm. Denies chest pain LUNGS: No crackles or wheezes are heard. Adequate air movement bilaterally on room air ABDOMEN: Soft, slight tenderness right upper quadrant nondistended with good bowel sounds. No peritoneal signs. No palpable organomegaly or masses. States had a small loose stool last night urinating no difficulty reports feeling nauseated no emesis EXTREMITIES: Normal skin color and turgor. No cyanosis, rash, ulceration, clubbing or edema. Radial pedal pulses are 2/4 bilaterally. NEUROLOGICAL: No focal deficits. Strength and sensation are grossly intact. - Labs CBC & Chem 7: 07/26/17 18:45 07/29/17 05:44 Labs: Abnormal Lab Results - Last 24 Hours (Table) 07/28/17 07/29/17 Range/Units 16:55 05:44 Potassium 3.3 L (3.5-5.1) mmol/L Chloride 110 H (98-107) mmol/L Carbon Dioxide 17 L (22-30) mmol/L BUN <2 L (7-17) mg/dL Creatinine 0.37 L (0.52-1.04) mg/dL Glucose 70 L (74-99) mg/dL Magnesium 1.4 L (1.6-2.3) mg/dL AST 84 H (14-36) U/L ALT 172 H (9-52) U/L Total Protein 6.0 L (6.3-8.2) g/dL Albumin 3.1 L (3.5-5.0) g/dL Lipase 656 H (23-300) U/L Microbiology - Last 24 Hours (Table) 07/26/17 21:40 Blood Culture - Preliminary Blood No Growth after 48 hours Assessment and Plan Assessment: Assessment and Plan (1) Epigastric abdominal pain Current Visit: Yes Status: Acute Code(s): R10.13 - EPIGASTRIC PAIN SNOMED Code(s): 74644951 (2) Pancreatitis, gallstone Current Visit: Yes Status: Acute Code(s): K85.10 - BILIARY ACUTE PANCREATITIS WITHOUT NECROSIS OR INFECTION SNOMED Code(s): 35201988 (3) Abdominal pain, acute, right upper quadrant Current Visit: Yes Status: Acute Code(s): R10.11 - RIGHT UPPER QUADRANT PAIN SNOMED Code(s): 024008808 (4) Cholelithiasis Current Visit: Yes Status: Acute Code(s): K80.20 - CALCULUS OF GALLBLADDER W /O CHOLECYSTITIS W/O OBSTRUCTION SNOMED Code(s): 491912164 (5) Dehydration Current Visit: Yes Status: Acute Code(s): E86.0 - DEHYDRATION SNOMED Code( s): 06604260 (6) Intrauterine , incidental Current Visit: Yes Status: Acute Code(s): Z34.90 - ENCNTR FOR SUPRVSN OF NORMAL , UNSP, UNSP TRIMESTER SNOMED Code(s): 15085709 (7) Nausea & vomiting Current Visit: Yes Status: Acute Code(s): R11.2 - NAUSEA WITH VOMITING, UNSPECIFIED SNOMED Code(s): 95550603 (8) Hyperemesis Current Visit: No Status: Acute Code(s): R11.10 - VOMITING, UNSPECIFIED SNOMED Code(s): 068042626 (9) Vitamin B6 deficiency Current Visit: Yes Status: Acute Code(s): E53.1 - PYRIDOXINE DEFICIENCY SNOMED Code(s): 512303560 #10 electrolyte abnormality hypokalemic potassium replaced will recheck labs in the morning #11 electrolyte abnormality hypo-magnesium magnesium replaced Tentatively scheduled for laparoscopic cholecystectomy The above impression and plan of care have been discussed and directed by signing physician. Fallon Jolley nurse practitioner acting as scribe for signing physician. <Rebecca Young N - Last Filed: 07/29/17 23:10> Objective - Vital Signs Vital signs: Vital Signs Temp 97.9 F 07/29/17 20:40 Pulse 86 07/29/17 20:40 Resp 16 07/29/17 20:40 BP 108/61 07/29/17 20:40 Pulse Ox 100 07/29/17 20:40 Intake & Output 07/29/17 07/29/17 07/30/17 06:59 18:59 06:59 Intake Total 240 60 Balance 240 60 Weight 60.4 kg Intake: Oral 240 60 Other: # Voids 1 1 - Labs CBC & Chem 7: 07/26/17 18:45 07/29/17 05:44 Labs: Abnormal Lab Results - Last 24 Hours (Table) 07/29/17 Range/Units 05:44 Chloride 110 H (98-107) mmol/L Carbon Dioxide 17 L (22-30) mmol/L BUN <2 L (7-17) mg/dL Creatinine 0.37 L (0.52-1.04) mg/dL Glucose 70 L (74-99) mg/dL Magnesium 1.4 L (1.6-2.3) mg/dL AST 84 H (14-36) U/L ALT 172 H (9-52) U/L Total Protein 6.0 L (6.3-8.2) g/dL Albumin 3.1 L (3.5-5.0) g/dL Lipase 656 H (23-300) U/L Microbiology - Last 24 Hours (Table) 07/26/17 21:40 Blood Culture - Preliminary Blood No Growth after 48 hours Assessment and Plan (1) Epigastric abdominal pain Current Visit: Yes Status: Acute Code(s): R10.13 - EPIGASTRIC PAIN SNOMED Code(s): 40104003 (2) Pancreatitis, gallstone Current Visit: Yes Status: Acute Code(s): K85.10 - BILIARY ACUTE PANCREATITIS WITHOUT NECROSIS OR INFECTION SNOMED Code(s): 56365449 (3) Abdominal pain, acute, right upper quadrant Current Visit: Yes Status: Acute Code(s): R10.11 - RIGHT UPPER QUADRANT PAIN SNOMED Code(s): 883711920 (4) Cholelithiasis Current Visit: Yes Status: Acute Code(s): K80.20 - CALCULUS OF GALLBLADDER W /O CHOLECYSTITIS W/O OBSTRUCTION SNOMED Code(s): 079710781 (5) Dehydration Current Visit: Yes Status: Acute Code(s): E86.0 - DEHYDRATION SNOMED Code( s): 15071315 (6) Intrauterine , incidental Current Visit: Yes Status: Acute Code(s): Z34.90 - ENCNTR FOR SUPRVSN OF NORMAL , UNSP, UNSP TRIMESTER SNOMED Code(s): 10839890 (7) Nausea & vomiting Current Visit: Yes Status: Acute Code(s): R11.2 - NAUSEA WITH VOMITING, UNSPECIFIED SNOMED Code(s): 20737111 (8) Hyperemesis Current Visit: No Status: Acute Code(s): R11.10 - VOMITING, UNSPECIFIED SNOMED Code(s): 595316041 (9) Vitamin B6 deficiency Current Visit: Yes Status: Acute Code(s): E53.1 - PYRIDOXINE DEFICIENCY SNOMED Code(s): 219908000 (10) Dietary counseling Current Visit: Yes Status: Acute Code(s): Z71.3 - DIETARY COUNSELING AND SURVEILLANCE SNOMED Code(s): 731154755
--- NOTE | 2017-07-29 23:11 | P.PN ---
Progress Note - Text Progress Note Date: 07/29/17 Patient seen and evaluated this evening. She reports persistent epigastric abdominal pain. She has clinical history of pancreatitis from gallstones. Recommend proceeding with laparoscopic cholecystectomy as she will be 13 weeks by this /Friday.
[2017-07-30] MEDS: MAGNESIUM SULFATE-D5W PMX 1 GM in DEXTROSE/WATER 1 100ML.BAG IVPB SCH (00:49)
[2017-07-30] MEDS: 0.9% NACL WITH KCL 20 MEQ/L 1,000 ML IV SCH ×2 (04:40→17:27)
[2017-07-30 07:13] LABS: Glucose 76 mg/dL (74-99); Total Protein 7.2 g/dL (6.3-8.2)
[2017-07-30 07:14] LABS: ALT 276 U/L (9-52); AST 154 U/L (14-36); Alkaline Phosphatase 119 U/L (38-126); Anion Gap 11 mmol/L; Blood Urea Nitrogen <2 mg/dL (7-17); Calcium 9.1 mg/dL (8.4-10.2); Carbon Dioxide 20 mmol/L (22-30); Chloride 107 mmol/L (98-107); Magnesium 2.1 mg/dL (1.6-2.3); Non-African American GFR(MDRD) >60 (>60 ml/min/1.73 sqM); Potassium 3.6 mmol/L (3.5-5.1); Sodium 138 mmol/L (137-145)
--- NOTE | 2017-07-30 08:15 | P.PN ---
Progress Note - Text Progress Note Date: 07/30/17 Patient seen and examined at bedside. She is currently 12 weeks 1 day today by 6 week US. Her pain is improved. She has not had tylenol for her pain since yesterday afternoon. She vomitted once yesterday and did not feel well then but is doing very well today. She is tolerating clears. Lipase is decreasing, current level is 566 down from 656. I will order US of fetus today to check viability and fluid level. I would not recommend surgery at this point in her . Laparoscopic surgery has been mostly successful mid second trimester as in 14-16 weeks gestation. This would be a more optimal time for cholecystectomy. At this time, continue current management or possibly stop the IV to see if lipase levels continue to fall. I will leave the decision to the surgical team.
[2017-07-30] MEDS: PYRIDOXINE 50 MG TAB PO SCH ×2 (08:39→21:18)
[2017-07-30] MEDS: FAMOTIDINE 20 MG TAB PO SCH ×2 (08:40→21:18)
--- NOTE | 2017-07-30 10:13 | US ---
EXAMINATION TYPE: US OB <= 14 wk fetus DATE OF EXAM: 07/30/2017 COMPARISON: NONE CLINICAL HISTORY: viability. inpt pending GB surgery, nausea, vomiting, abd pain EXAM PERFORMED: OBTA EXAM MEASUREMENTS: GESTATIONAL AGE / DATING Physician Established: (12 weeks/5 days) EDC: 02/06/2018 Dates by LMP: (12 weeks/4 days) EDC: 02/07/2018 Dates by First Scan: (12 weeks/3 days) EDC: 02/08/2018 Dates by Current Scan for: (12 weeks/4 days) EDC: 02/07/2018 MATERNAL ANATOMY Uterus: 11.6 x 8.1 x 6.9cm Right Ovary: 2.7 x 2.5 x 1.3cm Left Ovary: 2.6 x 1.7 x 1.4cm Post CDS / Adnexa: wnl Presence of free fluid: no Presence of corpus luteal cyst: not seen Presence of subchorionic bleed: no GESTATION / SURVEY CRL: 6.0cm (12 weeks/4 days) MSD: wnl Yolk Sac (normal less than 6mm): 0.3cm Heart Rate: 149 bpm Rhythm: Normal IUP: Viable IUP Date of LMP: unknown IMPRESSION: Single viable intrauterine identified.
--- NOTE | 2017-07-30 14:42 | P.PN ---
<Kriss Jolleycheko Hernandez - Last Filed: 07/30/17 14:30> Subjective Progress Note Date: 07/30/17 21-year-old female seen and examined at the bedside with Dr. Young. Patient continues to report having a nausea sensation with poor oral intake states can drink water but has no appetite does state the abdominal discomfort slightly improved patient is being followed by ONLINE PROGRAM COORDINATOR. Patient currently is 12 weeks 1 day per 6 week ultrasound. recommendations by ONLINE PROGRAM COORDINATOR were reviewed. recommending not proceeding with surgery at this time Laparoscopic surgery more optimal time would be in the second trimester approximate 2-3 weeks Objective - Vital Signs Vital signs: Vital Signs Temp 98.0 F 07/30/17 13:10 Pulse 68 07/30/17 13:10 Resp 16 07/30/17 13:10 BP 98/56 07/30/17 13:10 Pulse Ox 99 07/30/17 13:10 Intake & Output 07/29/17 07/30/17 07/30/17 18:59 06:59 18:59 Intake Total 60 Balance 60 Weight 60.4 kg Intake: Oral 60 Other: # Voids 1 - Exam GENERAL APPEARANCE: 21 -year-old female patient is alert, continues to report a nausea sensation no active emesis states has no appetite VITAL SIGNS: Reviewed HEENT: Head is normocephalic and atraumatic. Pupils are equal and reactive. The nares are patent. Oropharynx is clear without lesions. NECK: Supple without lymphadenopathy. Traches midline. HEART: S1, S2. Regular rate and rhythm. Denies chest pain LUNGS: No crackles or wheezes are heard. Adequate air movement bilaterally on room air ABDOMEN: Soft, slight tenderness right upper quadrant nondistended with good bowel sounds. No peritoneal signs. No palpable organomegaly or masses. Reports a nausea sensation no emesis no frequent stool urinating no difficulty EXTREMITIES: Normal skin color and turgor. No cyanosis, rash, ulceration, clubbing or edema. Radial pedal pulses are 2/4 bilaterally. NEUROLOGICAL: No focal deficits. Strength and sensation are grossly intact. - Labs CBC & Chem 7: 07/26/17 18:45 07/30/17 06:37 Labs: Abnormal Lab Results - Last 24 Hours (Table) 07/30/17 Range/Units 06:37 Carbon Dioxide 20 L (22-30) mmol/L BUN <2 L (7-17) mg/dL Creatinine 0.43 L (0.52-1.04) mg/dL AST 154 H (14-36) U/L ALT 276 H (9-52) U/L Lipase 566 H (23-300) U/L Microbiology - Last 24 Hours (Table) 07/26/17 21:40 Blood Culture - Preliminary Blood No Growth after 72 hours Assessment and Plan Assessment: Assessment and Plan (1) Epigastric abdominal pain Current Visit: Yes Status: Acute Code(s): R10.13 - EPIGASTRIC PAIN SNOMED Code(s): 70743895 (2) Pancreatitis, gallstone Current Visit: Yes Status: Acute Code(s): K85.10 - BILIARY ACUTE PANCREATITIS WITHOUT NECROSIS OR INFECTION SNOMED Code(s): 49491202 (3) Abdominal pain, acute, right upper quadrant Current Visit: Yes Status: Acute Code(s): R10.11 - RIGHT UPPER QUADRANT PAIN SNOMED Code(s): 805454539 (4) Cholelithiasis Current Visit: Yes Status: Acute Code(s): K80.20 - CALCULUS OF GALLBLADDER W /O CHOLECYSTITIS W/O OBSTRUCTION SNOMED Code(s): 752271194 (5) Dehydration Current Visit: Yes Status: Acute Code(s): E86.0 - DEHYDRATION SNOMED Code( s): 75958653 (6) Intrauterine , incidental Current Visit: Yes Status: Acute Code(s): Z34.90 - ENCNTR FOR SUPRVSN OF NORMAL , UNSP, UNSP TRIMESTER SNOMED Code(s): 51168631 (7) Nausea & vomiting Current Visit: Yes Status: Acute Code(s): R11.2 - NAUSEA WITH VOMITING, UNSPECIFIED SNOMED Code(s): 47673070 (8) Hyperemesis Current Visit: No Status: Acute Code(s): R11.10 - VOMITING, UNSPECIFIED SNOMED Code(s): 132633850 (9) Vitamin B6 deficiency Current Visit: Yes Status: Acute Code(s): E53.1 - PYRIDOXINE DEFICIENCY SNOMED Code(s): 782553200 #10 electrolyte abnormality hypokalemic potassium replaced will recheck labs in the morning #11 electrolyte abnormality hypo-magnesium magnesium replaced start a soft low-fat diet if patient is not able to tolerate the diet Dr. Young did discuss with the patient will need to be considered possible candidate to be transferred to a tertiary center for higher level of care Repeat labs in the morning The above impression and plan of care have been discussed and directed by signing physician. Fallon Jolley nurse practitioner acting as scribe for signing physician. <Rebecca Young N - Last Filed: 07/31/17 19:20> Objective - Vital Signs Vital signs: Vital Signs Temp 97.1 F L 07/31/17 12:30 Pulse 87 07/31/17 12:30 Resp 16 07/31/17 12:30 BP 109/60 07/31/17 12:30 Pulse Ox 100 07/31/17 12:30 Intake & Output 07/31/17 07/31/17 08/01/17 06:59 18:59 06:59 Intake Total 150 480 Balance 150 480 Intake: Oral 150 480 Other: # Voids 1 1 # Bowel Movements 1 - Labs CBC & Chem 7: 07/26/17 18:45 07/31/17 06:30 Labs: Abnormal Lab Results - Last 24 Hours (Table) 07/31/17 Range/Units 06:30 Chloride 110 H (98-107) mmol/L Carbon Dioxide 21 L (22-30) mmol/L BUN 3 L (7-17) mg/dL Creatinine 0.37 L (0.52-1.04) mg/dL AST 84 H (14-36) U/L ALT 214 H (9-52) U/L Total Protein 5.8 L (6.3-8.2) g/dL Albumin 2.9 L (3.5-5.0) g/dL Lipase 487 H (23-300) U/L Microbiology - Last 24 Hours (Table) 07/26/17 21:40 Blood Culture - Preliminary Blood No Growth after 96 hours Assessment and Plan (1) Epigastric abdominal pain Status: Acute Code(s): R10.13 - EPIGASTRIC PAIN SNOMED Code(s): 05516392 (2) Pancreatitis, gallstone Status: Acute Code(s): K85.10 - BILIARY ACUTE PANCREATITIS WITHOUT NECROSIS OR INFECTION SNOMED Code(s): 77569091 (3) Abdominal pain, acute, right upper quadrant Status: Acute Code(s): R10.11 - RIGHT UPPER QUADRANT PAIN SNOMED Code(s): 642533700 (4) Cholelithiasis Status: Acute Code(s): K80.20 - CALCULUS OF GALLBLADDER W/O CHOLECYSTITIS W/O OBSTRUCTION SNOMED Code(s): 157353562 (5) Dehydration Status: Acute Code(s): E86.0 - DEHYDRATION SNOMED Code(s): 45511158 (6) Intrauterine , incidental Status: Acute Code(s): Z34.90 - ENCNTR FOR SUPRVSN OF NORMAL , UNSP, UNSP TRIMESTER SNOMED Code(s): 03028855 (7) Nausea & vomiting Status: Acute Code(s): R11.2 - NAUSEA WITH VOMITING, UNSPECIFIED SNOMED Code (s): 53697988 (8) Hyperemesis Status: Acute Code(s): R11.10 - VOMITING, UNSPECIFIED SNOMED Code(s): 704950082 (9) Vitamin B6 deficiency Status: Acute Code(s): E53.1 - PYRIDOXINE DEFICIENCY SNOMED Code(s): 728615956 (10) Dietary counseling Status: Acute Code(s): Z71.3 - DIETARY COUNSELING AND SURVEILLANCE SNOMED Code(s): 601012763
[2017-07-31 06:54] LABS: ALT 214 U/L (9-52); AST 84 U/L (14-36); Alkaline Phosphatase 101 U/L (38-126); Anion Gap 7 mmol/L; Blood Urea Nitrogen 3 mg/dL (7-17); Calcium 8.9 mg/dL (8.4-10.2); Carbon Dioxide 21 mmol/L (22-30); Chloride 110 mmol/L (98-107); Glucose 83 mg/dL (74-99); Non-African American GFR(MDRD) >60 (>60 ml/min/1.73 sqM); Potassium 3.7 mmol/L (3.5-5.1); Sodium 138 mmol/L (137-145); Total Bilirubin 0.3 mg/dL (0.2-1.3); Total Protein 5.8 g/dL (6.3-8.2)
[2017-07-31] MEDS: 0.9% NACL WITH KCL 20 MEQ/L 1,000 ML IV SCH (07:37)
--- NOTE | 2017-07-31 09:21 | P.CONS ---
History of Present Illness - Reason for Consult Consult date: 07/31/17 Choledocholithiasis Requesting physician: Rebecca Young - History of Present Illness 21-year-old female approximate 12 weeks gestation first trimester admitted with acute abdominal pain that started a week ago. Pain localized mostly in the upper abdomen with nausea vomiting. Denies fever chills hematemesis hematochezia melena. No history of this type of pain. Ultrasound reported sludge CBD within normal limits. No dilated ducts. No focal liver defect. No ascites. Admission Lipase 847 presently 487. Total bilirubin 1.0. AST 76. ALT 150. Alkaline phosphatase 85. Presently total bilirubin 0.3. AST 84. ALT 214. Alkaline phosphatase 101. Tolerating light diet. Abdominal pain improved. Afebrile. Evaluated by OB/ DIRECT CARE COUNSELOR in general surgery. At this time surgical intervention is not planned until patient is in her second trimester/14-16 weeks. No history of hepatitis anchored tenderness or known liver abnormalities. Review of Systems Constitutional: Denies fever, chills, sweats, weight gain, or loss. HEENT: Negative for migraines, blurred vision or loss, earaches, drainage, tinnitus, oral mucosal lesions, dysphagia, or odynophagia. CARDIAC: Negative for chest pain, arrhythmias, or palpitation. RESPIRATORY: Negative for shortness of breath, hemoptysis, cough, or sputum production. GI: See HPI for pertinent findings. : Negative for hematuria, urgency, frequency, polyuria, or dysuria. GYNc: Denies possibility of . Negative vaginal discharge. MUSCULOSKELETAL: Negative for muscle aches, swelling, arthritis, and arthralgias. NEUROLOGIC: Negative for stroke or TIA. ENDOCRINE: Negative for thyroid problems. SKIN: Negative for rash or itching. PSYCHIATRIC: History of depression. All systems: negative (See HPI) Past Medical History Past Medical History: No Reported History History of Any Multi-Drug Resistant Organisms: None Reported Past Surgical History: No Surgical Hx Reported Past Psychological History: Depression Smoking Status: Never smoker Past Alcohol Use History: None Reported Past Drug Use History: None Reported - Past Family History Mother Family Medical History: No Reported History Medications and Allergies Home Medications Medication Instructions Recorded Confirmed Type Ondansetron HCl [Zofran] 4 mg PO Q8H PRN 07/25/17 07/26/17 History Pyridoxine HCl (Vitamin B6) 100 mg PO BID #20 tablet 07/25/17 07/26/17 Rx [Vitamin B-6] Sertraline [Zoloft] 50 mg PO DAILY 07/25/17 07/26/17 History Allergies Allergy/AdvReac Type Severity Reaction Status Date / Time No Known Allergies Allergy Verified 07/26/17 18:08 Physical Exam Vitals: Vital Signs Temp Pulse Resp BP Pulse Ox 07/31/17 08:05 98.1 F 90 19 96/47 97 07/31/17 01:14 98.1 F 72 16 98/58 98 07/30/17 19:06 97.9 F 93 20 115/72 93 L 07/30/17 16:08 97.5 F L 86 16 104/72 100 07/30/17 13:10 98.0 F 68 16 98/56 99 Intake and Output 07/30/17 07/31/17 07/31/17 22:59 06:59 14:59 Intake Total 150 Balance 150 Intake: Oral 150 Other: # Voids 1 1 General appearance: The patient is alert, oriented, in no acute distress. HET: Head is normocephalic and atraumatic. Pupils are equal and reactive. Oropharynx is clear without lesions. Neck: Supple without lymphadenopathy. Trachea midline. Heart: S1 S2. Regular rate and rhythm. Lungs: No crackles or wheezes are heard. Abdomen: Soft, very mild midepigastric tenderness, nondistended with bowel sounds. No peritoneal signs. No palpable organomegaly or masses. Extremities: Normal skin color and turgor. No cyanosis, rash, ulceration, clubbing, or edema. Radial and pedal pulses are 2/4 bilaterally. Neurological: No focal deficits. Strength and sensation are grossly intact. Results CBC & Chem 7: 07/26/17 18:45 07/31/17 06:30 Labs: Abnormal Lab Results - Last 24 Hours (Table) 07/31/17 Range/Units 06:30 Chloride 110 H (98-107) mmol/L Carbon Dioxide 21 L (22-30) mmol/L BUN 3 L (7-17) mg/dL Creatinine 0.37 L (0.52-1.04) mg/dL AST 84 H (14-36) U/L ALT 214 H (9-52) U/L Total Protein 5.8 L (6.3-8.2) g/dL Albumin 2.9 L (3.5-5.0) g/dL Lipase 487 H (23-300) U/L Microbiology - Last 24 Hours (Table) 07/26/17 21:40 Blood Culture - Preliminary Blood No Growth after 96 hours US - abdomen: report reviewed (Dr. Santos) Assessment and Plan (1) Abdominal pain, acute, right upper quadrant Current Visit: Yes Status: Acute Code(s): R10.11 - RIGHT UPPER QUADRANT PAIN SNOMED Code(s): 871890984 (2) Cholelithiasis Current Visit: Yes Status: Acute Code(s): K80.20 - CALCULUS OF GALLBLADDER W /O CHOLECYSTITIS W/O OBSTRUCTION SNOMED Code(s): 527121493 (3) Intrauterine , incidental Current Visit: Yes Status: Acute Code(s): Z34.90 - ENCNTR FOR SUPRVSN OF NORMAL , UNSP, UNSP TRIMESTER SNOMED Code(s): 96906559 (4) Pancreatitis Current Visit: Yes Status: Acute Code(s): K85.90 - ACUTE PANCREATITIS WITHOUT NECROSIS OR INFECTION, UNSP SNOMED Code(s): 53024463 Plan: 1. Presently patient is tolerating a diet and her transaminases are improving with normal bilirubin therefore ERCP is not indicated. 2. If patient's liver enzymes worsen would recommend transfer to tertiary center for ERCP evaluation secondary to her first trimester and presently not a candidate for surgical intervention. 3. We'll defer to general surgery for further recommendations. Thank you for this kind referral and the opportunity to participate in the care of your patient. This consultation was discussed with Dr. Santos. The impression and plan of care have been directed as dictated.
[2017-07-31] MEDS: FAMOTIDINE 20 MG TAB PO SCH (09:45)
[2017-07-31] MEDS: PYRIDOXINE 50 MG TAB PO SCH (09:46)
--- NOTE | 2017-07-31 11:40 | P.PN ---
Progress Note - Text Progress Note Date: 07/31/17 Patient seen and examined. at 12 weeks 2 days today. Her Lipase and liver enzymes are improving She did tolerate mashed potatoes and peanut butter and jelly yesterday and last night. No abdominal pain or nausea. I am ok with her being discharged home at this point to follow up with me next week in the office. She can follow up with general surgery as well and plan for possible cholecystectomy after she reaches 14 weeks gestation.
--- NOTE | 2017-07-31 11:49 | P.DS ---
<Fallon Jolley - Last Filed: 07/31/17 11:42> Providers Date of admission: 07/27/17 15:44 Expected date of discharge: 07/31/17 Attending physician: Rebecca Young Consults: 07/26/17 20:28 Consult Physician Stat Consulting Provider: Corazon Riley Consult Reason/Comments: Do you want consulting provider notified?: Yes 07/30/17 09:53 Consult Physician Urgent Consulting Provider: Candice Fajardo Consult Reason/Comments: Choledocholithiasis Do you want consulting provider notified?: Yes Primary care physician: [facility] Course: 21-year-old female who was admitted on the day of admission to the emergency room with 3-4 day duration of abdominal pain along the epigastric area. Patient is at least 12 weeks . Patient reports having an episodes of intractable nausea and vomiting. Patient was followed closely throughout the hospitalization by STRAP MACHINE OPERATOR. Labs were monitored closely. Lipase and liver enzymes were improving. On the day of discharge patient was tolerating the mask potatoes the pain better jelly sandwiches. Stated less nausea. The plan was for the patient to be discharged and follow-up with STRAP MACHINE OPERATOR next week the following week would be seen by Dr. Young. Patient would be evaluated for possible cholecystectomy after she reaches 14 weeks gestation. Patient is GI PO 12 week 2 days as of July. From all consulting physicians patient was felt to be appropriate to be discharged. On the day of discharge patient was up ambulating denied abdominal pain stated that she felt significantly improved was having less nausea sensation no emesis no frequent stooling no difficulty in urinating- Discharge Diagnosis(es) (1) Epigastric abdominal pain Current Visit: Yes Status: Acute (2) Pancreatitis, gallstone Current Visit: Yes Status: Acute (3) Abdominal pain, acute, right upper quadrant Current Visit: Yes Status: Acute (4) Cholelithiasis Current Visit: Yes Status: Acute (5) Dehydration Current Visit: Yes Status: Acute (6) Intrauterine , incidental Current Visit: Yes Status: Acute (7) Nausea & vomiting Current Visit: Yes Status: Acute (8) Hyperemesis Current Visit: No Status: Acute (9) Vitamin B6 deficiency Current Visit: Yes Status: Acute (10) Dietary counseling The above impression and plan of care have been discussed and directed by signing physician. Fallon Jolley nurse practitioner acting as scribe for signing physician. Patient Condition at Discharge: Stable Plan - Discharge Summary Discharge Rx Participant: No New Discharge Prescriptions: Continue Sertraline [Zoloft] 50 mg PO DAILY Ondansetron HCl [Zofran] 4 mg PO Q8H PRN PRN Reason: Nausea Pyridoxine HCl (Vitamin B6) [Vitamin B-6] 100 mg PO BID #20 tablet Discharge Medication List Ondansetron HCl [Zofran] 4 mg PO Q8H PRN 07/25/17 [History] Pyridoxine HCl (Vitamin B6) [Vitamin B-6] 100 mg PO BID #20 tablet 07/25/17 [Rx] Sertraline [Zoloft] 50 mg PO DAILY 07/25/17 [History] Follow up Appointment(s)/Referral(s): Corazon Riley DO [Doctor of Osteopathic Medicine] - 08/04/17 1:45 pm Rebecca Young MD [STAFF PHYSICIAN] - 08/12/17 11:40 am (Please call to confirm time) Esther Little MD [Primary Care Provider] - 1-2 days Ambulatory/Diagnostic Orders: Comprehensive Metabolic Panel [LAB.AMB] Time Frame: 08/04/17, Location: Determined By Patient Comprehensive Metabolic Panel [LAB.AMB] Time Frame: 08/04/17, Location: Determined By Patient Comprehensive Metabolic Panel [LAB.AMB] Time Frame: 08/04/17, Location: Determined By Patient Patient Instructions/Handouts: Nausea and Vomiting in (GEN), Biliary Colic (GEN), Low Fat Diet (DC) Activity/Diet/Wound Care/Special Instructions: Recommend fat-free diet until of her baby. For nausea, recommend daily Liza tea, peppermint tea, and/or lemon water including staying well-hydrated. Call office with return or worsening of the symptoms that brought you here or any concerns. Activity as tolerated. Discharge Disposition: HOME SELF-CARE <Rebecca Young - Last Filed: 07/31/17 19:21> - Discharge Diagnosis(es) (1) Epigastric abdominal pain Status: Acute (2) Pancreatitis, gallstone Status: Acute (3) Abdominal pain, acute, right upper quadrant Status: Acute (4) Cholelithiasis Status: Acute (5) Dehydration Status: Acute (6) Intrauterine , incidental Status: Acute (7) Nausea & vomiting Status: Acute (8) Hyperemesis Status: Acute (9) Vitamin B6 deficiency Status: Acute (10) Dietary counseling Status: Acute
[2017-07-31 14:00] VITALS: BP 109/60; PULSE 87; RESP 16; TEMP 97.1
== END 2017-07-31 15:15 | disposition home or self-care (01) | DRG 781 ==
LOC: EC 18:00 → 6PED 20:51 → INTOOBSV 20:51 → OBSVTOIN 07-27 15:44 → 6PED 07-29 15:13
PROVIDERS: ADMIT Surgery Plastic and Reconstructive Surgery; ATTEND Surgery Plastic and Reconstructive Surgery
DX: O99.611 Diseases of the digestive system complicating pregnancy, first trimester (principal); K85.10 Biliary acute pancreatitis without necrosis or infection; E83.42 Hypomagnesemia; K83.8 Other specified diseases of biliary tract; E86.0 Dehydration; K80.70 Calculus of gallbladder and bile duct without cholecystitis without obstruction; E53.1 Pyridoxine deficiency; Z3A.12 12 weeks gestation of pregnancy; E87.6 Hypokalemia; Z71.3 Dietary counseling and surveillance; Z79.899 Other long term (current) drug therapy; F32.9 Major depressive disorder, single episode, unspecified; O99.341 Other mental disorders complicating pregnancy, first trimester; O99.281 Endocrine, nutritional and metabolic diseases complicating pregnancy, first trimester
CPT/HCPCS: 36415; 76705; 76801; 80053; 80074; 81001; 82150; 83690; 83735; 84132; 85025; 87040; 96361; 96365; 96375; 99285

== ENCOUNTER → 2017-08-05 | Outpatient (CLI) | payer BC ==
[2017-08-05 16:46] LABS: CH 28.9; CHCM 33.9; HCT 35.3 % (34.0-46.0); HDW 2.71; HGB 12.3 gm/dL (11.4-16.0); MCH 29.9 pg (25.0-35.0); MCHC 34.9 g/dL (31.0-37.0); MCV 85.6 fL (80.0-100.0); Mean Platelet Volume 7.5; RBC 4.12 m/uL (3.80-5.40); RDW 13.6 % (11.5-15.5); WBC 6.3 k/uL (4.0-11.0)
[2017-08-05 17:13] LABS: ALT 118 U/L (9-52); AST 50 U/L (14-36); Alkaline Phosphatase 115 U/L (38-126); Anion Gap 13 mmol/L; Blood Urea Nitrogen 6 mg/dL (7-17); Calcium 10.1 mg/dL (8.4-10.2); Carbon Dioxide 19 mmol/L (22-30); Chloride 105 mmol/L (98-107); Glucose 79 mg/dL (74-99); Non-African American GFR(MDRD) >60 (>60 ml/min/1.73 sqM); Potassium 4.3 mmol/L (3.5-5.1); Sodium 137 mmol/L (137-145); Total Bilirubin 0.5 mg/dL (0.2-1.3); Total Protein 7.5 g/dL (6.3-8.2)
[2017-08-06 04:06] LABS: Treponemal Ab Non-Reactive (Non-Reactive)
== END | disposition home or self-care (01) ==
LOC: LABWHC1 16:13
PROVIDERS: ATTEND Obstetrics & Gynecology
DX: R79.89 Other specified abnormal findings of blood chemistry (principal)
CPT/HCPCS: 36415; 80053; 85027; 86762; 86777; 86778; 86780; 86850; 86900; 86901; 87340; 87390

== ENCOUNTER 2017-08-11 16:02 | Emergency (ER) | payer BC ==
[2017-08-11] MEDS ORDERED: ACETAMINOPHEN TAB 500 MG TAB PO STA (17:51)
[2017-08-11] MEDS ORDERED: SODIUM CHLORIDE 0.9% 1,000 ML IV ONE (17:51)
--- NOTE | 2017-08-11 17:58 | ED ---
Abdominal Pain HPI - General Chief Complaint: Abdominal Pain Stated Complaint: Chest Pain Time Seen by Provider: 08/11/17 17:28 Source: patient Mode of arrival: ambulatory Limitations: no limitations - History of Present Illness Initial Comments: patient is a 21-year-old chief complaint epigastric abdominal pain. The patient also has a recent history of ulcer and pancreatitis for which she was admitted to the hospital one week ago. At that time she was seen by Dr. Young who has been following the patient since. According the patient, there is plans to have her gallbladder removed however she has yet to have her follow-up appointment which is scheduled for tomorrow. Patient returns today because she is having increasing abdominal pain since yesterday and she states it is reminiscent of the pain she had when she was diagnosed with pancreatitis. The patient cannot identify any inciting incidences. Alleviating factors are rest, aggravating factors are eating. Patient states that she is able to stay hydrated. She denies any overt nausea or vomiting. Her pain has been constant - Related Data Home Medications Medication Instructions Recorded Confirmed No Known Home Medications [No 08/11/17 08/11/17 Known Home Medications] Allergies Allergy/AdvReac Type Severity Reaction Status Date / Time No Known Allergies Allergy Verified 08/11/17 18:41 Review of Systems ROS Statement: Those systems with pertinent positive or pertinent negative responses have been documented in the HPI. ROS Other: All systems not noted in ROS Statement are negative. Constitutional: Denies: fever Eyes: Denies: vision change ENT: Denies: ear pain, throat pain Respiratory: Denies: cough Cardiovascular: Denies: chest pain Endocrine: Denies: fatigue Gastrointestinal: Reports: abdominal pain. Denies: nausea, vomiting Genitourinary: Denies: dysuria, discharge Musculoskeletal: Denies: back pain Skin: Denies: rash, lesions Neurological: Denies: headache Past Medical History Past Medical History: No Reported History History of Any Multi-Drug Resistant Organisms: None Reported Past Surgical History: No Surgical Hx Reported Past Psychological History: Depression Smoking Status: Never smoker Past Alcohol Use History: None Reported Past Drug Use History: None Reported - Past Family History Mother Family Medical History: No Reported History General Exam Limitations: no limitations General appearance: alert, in no apparent distress Head exam: Present: atraumatic, normocephalic Eye exam: Present: normal appearance ENT exam: Present: mucous membranes moist Respiratory exam: Present: normal lung sounds bilaterally Cardiovascular Exam: Present: regular rate, normal rhythm GI/Abdominal exam: Present: soft, tenderness (patient has tenderness to palpation in the epigastric, left and right upper quadrants.). Absent: distended Rectal exam: Present: deferred Back exam: Absent: CVA tenderness (R), CVA tenderness (L) Neurological exam: Present: alert, oriented X3 Psychiatric exam: Present: normal affect, normal mood Skin exam: Present: warm, dry, intact Course Vital Signs 08/11/17 16:10 Temperature 98.1 F Pulse Rate 102 H Respiratory 20 Rate Blood Pressure 112/54 O2 Sat by Pulse 100 Oximetry Medical Decision Making - Medical Decision Making patient is a 21-year-old female, , weeks' , who presents with a chief complaint of abdominal pain. She was recently admitted and discharged from the hospital for pancreatitis. She is a follow-up appointment with her general surgeon tomorrow to plan for a cholecystectomy however she was told that if her pain increases that she come to the emergency department. Patient will have repeat lab work, and be sent for a right upper quadrant ultrasound to evaluate the size of her common bile duct. Labs including a lipase will be sent. 7:53 PM Lab evaluation this patient is unremarkable. Lipase is within normal limits at 188. Dr. Young was able to present to the emergency department to evaluate the patient. She reviewed the labs and is agreeable with discharge home. Patient was reinforced that she should avoid fat containing foods. She will follow up with her primary care doctor and Dr. Young in the future. At this time, patient is stable for discharge. She was given expose the signs and symptoms that should prompt return visit to the emergency department. - Lab Data Result diagrams: 08/11/17 18:10 08/11/17 18:10 Lab Results 08/11/17 08/11/17 08/11/17 Range/Units 18:10 18:10 18:10 WBC 6.7 (4.0-11.0) k/uL RBC 4.52 (3.80-5.40) m/uL Hgb 12.9 (11.4-16.0) gm/dL Hct 37.7 (34.0-46.0) % MCV 83.3 (80.0-100.0) fL MCH 28.4 (25.0-35.0) pg MCHC 34.1 (31.0-37.0) g/dL RDW 13.8 (11.5-15.5) % Plt Count 269 (150-450) k/uL Neutrophils % 67 % Lymphocytes % 25 % Monocytes % 5 % Eosinophils % 1 % Basophils % 0 % Neutrophils # 4.5 (1.3-7.7) k/uL Lymphocytes # 1.7 (1.0-4.8) k/uL Monocytes # 0.3 (0-1.0) k/uL Eosinophils # 0.1 (0-0.7) k/uL Basophils # 0.0 (0-0.2) k/uL Sodium 136 L (137-145) mmol/L Potassium 3.9 (3.5-5.1) mmol/L Chloride 105 (98-107) mmol/L Carbon Dioxide 21 L (22-30) mmol/L Anion Gap 10 mmol/L BUN 3 L (7-17) mg/dL Creatinine 0.45 L (0.52-1.04) mg/dL Est GFR (MDRD) Af Amer >60 (>60 ml/min/1.73 sqM) Est GFR (MDRD) Non-Af >60 (>60 ml/min/1.73 sqM) Glucose 82 (74-99) mg/dL Calcium 9.7 (8.4-10.2) mg/dL Total Bilirubin 0.3 (0.2-1.3) mg/dL AST 25 (14-36) U/L ALT 52 (9-52) U/L Alkaline Phosphatase 100 (38-126) U/L Total Protein 7.6 (6.3-8.2) g/dL Albumin 4.1 (3.5-5.0) g/dL Lipase 188 (23-300) U/L Urine Color Yellow Urine Appearance Turbid H (Clear) Urine pH 6.5 (5.0-8.0) Ur Specific [place] 1.010 (1.001-1.035) Urine Protein Negative (Negative) Urine Glucose (UA) Negative (Negative) Urine Ketones 1+ H (Negative) Urine Blood Small H (Negative) Urine Nitrite Negative (Negative) Urine Bilirubin Negative (Negative) Urine Urobilinogen <2.0 (<2.0) mg/dL Ur Leukocyte Esterase Small H (Negative) Urine RBC <1 (0-5) /hpf Urine WBC 12 H (0-5) /hpf Ur Squamous Epith Cells 11 H (0-4) /hpf Amorphous Sediment Few H (None) /hpf Urine Bacteria Occasional H (None) /hpf Urine Mucus Rare H (None) /hpf Disposition Clinical Impression: Abdominal pain, Cholelithiasis Disposition: HOME SELF-CARE Condition: Good Instructions: Abdominal Pain in (ED) Referrals: None,Stated [Primary Care Provider] - 1-2 days Rebecca Young MD [STAFF PHYSICIAN] - 1-2 days
[2017-08-11 18:24] LABS: Basophils % (A) 0 %; Eosinophils # (A) 0.1 k/uL (0-0.7); Eosinophils % (A) 1 %; HCT 37.7 % (34.0-46.0); HDW 2.83; HGB 12.9 gm/dL (11.4-16.0); Luc # (Auto) 0.12; Luc % (Auto) 2; Lymphocytes # (A) 1.7 k/uL (1.0-4.8); Lymphocytes % (A) 25 %; MCH 28.4 pg (25.0-35.0); MCHC 34.1 g/dL (31.0-37.0); MCV 83.3 fL (80.0-100.0); Mean Platelet Volume 6.9; Monocytes # (A) 0.3 k/uL (0-1.0); Monocytes % (A) 5 %; Neutrophils # (A) 4.5 k/uL (1.3-7.7); Neutrophils % (A) 67 %; RBC 4.52 m/uL (3.80-5.40); RDW 13.8 % (11.5-15.5); WBC 6.7 k/uL (4.0-11.0); WBC (Perox) 6.51
[2017-08-11 18:26] LABS: Amorphous Sediment,Urine Few /hpf; Appearance,Urine Turbid (Clear); Bacteria,Urine Occasional /hpf; Bilirubin,Urine Negative (Negative); Glucose,Urine (UA) Negative (Negative); Ketones,Urine 1+ (Negative); Leukocyte Esterase,Urine Small (Negative); Mucus,Urine Rare /hpf; Nitrite,Urine Negative (Negative); PH, Urine 6.5 (5.0-8.0); Particle Count 9006; Protein,Urine Negative (Negative); RBC,Urine <1 /hpf (0-5); Squamous Epithelial Cell,Urine 11 /hpf (0-4); UA Billing (MACRO vs. MICRO) MICRO; Urobilinogen,Urine <2.0 mg/dL (<2.0); WBC,Urine 12 /hpf (0-5)
[2017-08-11 18:35] LABS: ALT 52 U/L (9-52); AST 25 U/L (14-36); Alkaline Phosphatase 100 U/L (38-126); Anion Gap 10 mmol/L; Blood Urea Nitrogen 3 mg/dL (7-17); Calcium 9.7 mg/dL (8.4-10.2); Carbon Dioxide 21 mmol/L (22-30); Chloride 105 mmol/L (98-107); Glucose 82 mg/dL (74-99); Non-African American GFR(MDRD) >60 (>60 ml/min/1.73 sqM); Potassium 3.9 mmol/L (3.5-5.1); Sodium 136 mmol/L (137-145); Total Bilirubin 0.3 mg/dL (0.2-1.3); Total Protein 7.6 g/dL (6.3-8.2)
--- NOTE | 2017-08-11 19:21 | US ---
EXAMINATION TYPE: US gallbladder DATE OF EXAM: 08/11/2017 COMPARISON: NONE CLINICAL HISTORY: Pain. RUQ pain hx of gallstones EXAM MEASUREMENTS: Liver Length: 13.5 cm Gallbladder Wall: 0.20 cm CBD: 0.62 cm Right Kidney: 8.8 x 3.7 x 3.7 cm Pancreas: Tail obscured by overlying bowel gas Liver: wnl Gallbladder: BAYLEE sign Evidence for sonographic Stockton's sign: Yes CBD: appears wnl Right Kidney: No hydronephrosis or masses seen Echogenic gallbladder with shadowing visualized BAYLEE sign IMPRESSION: There is shadowing in the region of the gallbladder that is suggestive of a gallbladder f illed with stones. No dilated ducts.
[2017-08-11 20:16] VITALS: BP 103/57; PULSE 75; RESP 18; TEMP 97
--- NOTE | 2017-08-11 20:51 | P.GSCN ---
History of Present Illness Consult date: 08/11/17 Reason for Consult: Abdominal pain Requesting physician: Aries Navarrete History of present illness: CHIEF COMPLAINT: Chronic epigastric abdominal pain. HISTORY OF PRESENT ILLNESS: The patient is an 21-year-old female who is in her second trimester who was recently hospitalized for gallstone-induced pancreatitis. Her previous admission was on 07/27/2017. As she was very early in her , per her ortho/prosthetic aide request, any surgical intervention was delayed. She saw Dr. Riley in the office one week ago and was advised conservative management. The patient did have repeat blood work 1 week ago showing improvement of her liver including pancreatic enzymes. She reports eating peanut butter and jelly at home including foods with fat. She reports having right upper quadrant epigastric abdominal pain after eating these foods. Given her findings, she presents to the ER for further evaluation. PAST MEDICAL HISTORY: See list. PAST SURGICAL HISTORY: See list. CURRENT MEDICATIONS: See list. ALLERGIES: DENIES. SOCIAL HISTORY: Non-tobacco user. FAMILY HISTORY: Pertinent for gallbladder disease. REVIEW OF ORGAN SYSTEMS: CONSTITUTIONAL: Denies any fever or chills. Denies recent weight loss or weight gain. HEENT: Denies any trouble with vision, hearing or nosebleeds. No difficulty swallowing. LYMPHATIC: The patient denies any lumps and bumps around the neck. ENDOCRINE: Denies any thyroid disorders. Denies any blood sugar glucose intolerance. RESPIRATORY: Denies pneumonia. Denies any troubles with breathing or dyspnea on exertion. CARDIOVASCULAR: Denies any chest pain, palpitations, or recent heart attacks. GASTROINTESTINAL: History morning sickness. No blood in stools. Recent finding of gallstones. GENITOURINARY: Denies any blood in urine or increased urinary frequency. MUSCULOSKELETAL: Denies any back pain, stiffness, joint arthritis. NEUROLOGIC: Denies any numbness or tingling along the distal extremities. No seizure disorders or headaches. PSYCHIATRIC: Has depression. No suidical ideation. HEMATOLOGIC: Denies any abnormal bleeding or bruising. PHYSICAL EXAMINATION: GENERAL: Well developed and in no acute distress. Pleasant. HEENT: No sclera icterus. Extraocular movements grossly intact. Moist buccal mucosa. Head is atraumatic, normocephalic. Hears conversational speech. No nasal drainage. NECK: Supple without lymphadenopathy. No JV distention. CHEST: Non-labored respirations and equal bilateral excursions. CARDIOVASCULAR: Regular rate and rhythm. Palpable 2+ radial pulses. ABDOMEN: Soft. Nondistended. Minimal tenderness along the epigastrium. No peritonitis. No guarding. MUSCULOSKELETAL: No clubbing, cyanosis or edema. NEUROLOGIC: No focal or lateralizing signs. PSYCH: Appropriate affect. Alert and oriented to person, place and time. SKIN: Good skin turgor. Well perfused. LABS: Reviewed. Now normal compared to previous blood work 3 weeks ago. STUDIES: Ultrasound of the abdomen now demonstrates no evidence of thickened gallbladder wall or acute cholecystitis. ASSESSMENT: 1. Personal history of gallstone-induced pancreatitis now resolved. 2. Symptomatic gallstones. 3. , second trimester. 4. Hyperemesis . 5. Dietary management and surveillance. PLAN: 1. As she is in her second trimester, most of her symptoms can be controlled with diet alone. I personally went over her dietary history at length including avoiding all forms of fat for her safety. 2. Ideally, surgical intervention advised. 3. Strict no fat diet advised. Suggest examples were reviewed. 4. She she continued to have acute symptomatic abdominal pain, early surgical intervention in August. 5. Recommend close follow-up with ortho/prosthetic aide. 6. I gave her my personal contact number for any questions regarding diet as well. Thank you very much for allowing me to participate in the care of your patient. Past Medical History Past Medical History: No Reported History History of Any Multi-Drug Resistant Organisms: None Reported Past Surgical History: No Surgical Hx Reported Past Psychological History: Depression Smoking Status: Never smoker Past Alcohol Use History: None Reported Past Drug Use History: None Reported - Past Family History Mother Family Medical History: No Reported History Medications and Allergies Home Medications Medication Instructions Recorded Confirmed Type No Known Home Medications [No 08/11/17 08/11/17 History Known Home Medications] Allergies Allergy/AdvReac Type Severity Reaction Status Date / Time No Known Allergies Allergy Verified 08/11/17 18:41 Surgical - Exam Vital Signs Temp Pulse Resp BP Pulse Ox 98.1 F 102 H 20 112/54 100 08/11/17 16:10 08/11/17 16:10 08/11/17 16:10 08/11/17 16:10 08/11/17 16:10 Results - Labs 08/11/17 18:10 08/11/17 18:10 Abnormal Lab Results - Last 24 Hours (Table) 08/11/17 08/11/17 Range/Units 18:10 18:10 Sodium 136 L (137-145) mmol/L Carbon Dioxide 21 L (22-30) mmol/L BUN 3 L (7-17) mg/dL Creatinine 0.45 L (0.52-1.04) mg/dL Urine Appearance Turbid H (Clear) Urine Ketones 1+ H (Negative) Urine Blood Small H (Negative) Ur Leukocyte Esterase Small H (Negative) Urine WBC 12 H (0-5) /hpf Ur Squamous Epith Cells 11 H (0-4) /hpf Amorphous Sediment Few H (None) /hpf Urine Bacteria Occasional H (None) /hpf Urine Mucus Rare H (None) /hpf Diabetes panel 08/11/17 Range/Units 18:10 Sodium 136 L (137-145) mmol/L Potassium 3.9 (3.5-5.1) mmol/L Chloride 105 (98-107) mmol/L Carbon Dioxide 21 L (22-30) mmol/L BUN 3 L (7-17) mg/dL Creatinine 0.45 L (0.52-1.04) mg/dL Glucose 82 (74-99) mg/dL Calcium 9.7 (8.4-10.2) mg/dL AST 25 (14-36) U/L ALT 52 (9-52) U/L Alkaline Phosphatase 100 (38-126) U/L Total Protein 7.6 (6.3-8.2) g/dL Albumin 4.1 (3.5-5.0) g/dL Calcium panel 08/11/17 Range/Units 18:10 Calcium 9.7 (8.4-10.2) mg/dL Albumin 4.1 (3.5-5.0) g/dL Pituitary panel 08/11/17 Range/Units 18:10 Sodium 136 L (137-145) mmol/L Potassium 3.9 (3.5-5.1) mmol/L Chloride 105 (98-107) mmol/L Carbon Dioxide 21 L (22-30) mmol/L BUN 3 L (7-17) mg/dL Creatinine 0.45 L (0.52-1.04) mg/dL Glucose 82 (74-99) mg/dL Calcium 9.7 (8.4-10.2) mg/dL Adrenal panel 08/11/17 Range/Units 18:10 Sodium 136 L (137-145) mmol/L Potassium 3.9 (3.5-5.1) mmol/L Chloride 105 (98-107) mmol/L Carbon Dioxide 21 L (22-30) mmol/L BUN 3 L (7-17) mg/dL Creatinine 0.45 L (0.52-1.04) mg/dL Glucose 82 (74-99) mg/dL Calcium 9.7 (8.4-10.2) mg/dL Total Bilirubin 0.3 (0.2-1.3) mg/dL AST 25 (14-36) U/L ALT 52 (9-52) U/L Alkaline Phosphatase 100 (38-126) U/L Total Protein 7.6 (6.3-8.2) g/dL Albumin 4.1 (3.5-5.0) g/dL Assessment and Plan (1) Anxiety Status: Acute Code(s): F41.9 - ANXIETY DISORDER, UNSPECIFIED SNOMED Code(s) : 94204734 (2) Second trimester Status: Acute Code(s): Z34.92 - ENCNTR FOR SUPRVSN OF NORMAL PREG, UNSP, SECOND TRIMESTER SNOMED Code(s): 20744915 (3) Cholelithiasis Status: Acute Code(s): K80.20 - CALCULUS OF GALLBLADDER W/O CHOLECYSTITIS W/O OBSTRUCTION SNOMED Code(s): 396745331 (4) Dietary counseling Status: Acute Code(s): Z71.3 - DIETARY COUNSELING AND SURVEILLANCE SNOMED Code(s): 282495315 (5) Epigastric abdominal pain Status: Acute Code(s): R10.13 - EPIGASTRIC PAIN SNOMED Code(s): 83435808 (6) Hyperemesis Status: Acute Code(s): R11.10 - VOMITING, UNSPECIFIED SNOMED Code(s): 474921497 (7) Pancreatitis, gallstone Status: Acute Code(s): K85.10 - BILIARY ACUTE PANCREATITIS WITHOUT NECROSIS OR INFECTION SNOMED Code(s): 45384188 Time with Patient: Greater than 30
== END 2017-08-11 20:10 | disposition home or self-care (01) ==
LOC: EC 16:02
DX: K80.20 Calculus of gallbladder without cholecystitis without obstruction (principal)
CPT/HCPCS: 36415; 76705; 80053; 81001; 83690; 85025; 96360; 99284

== ENCOUNTER 2017-12-03 16:29 | Outpatient (CLI) | payer BC, OTHER ==
[2017-12-03 17:47] VITALS: BP 117/69; PULSE 84; RESP 16; TEMP 97.1
--- NOTE | 2017-12-10 17:31 | P.MSEPDOC ---
Presenting Problems - Arrival Data Date of Arrival on Unit: 12/03/17 Time of Arrival on Unit: 16:30 Mode of Transport: Ambulatory - Complaint OB-Reason for Admission/Chief Complaint: Headache Comment: Headache x 4 days, in temples and behind eyes-pressure 8/10. Hx of migraines, unable to take normal migraine relief medication r/t pregnany. Medical History - Information : 1 Para: 0 Term: 0 : 0 Abortions: Spontaneous or Elective: 0 Number of Living Children: 0 - Gestational Age Gestational Age by CHERYL (wks/days): 30 Weeks and 4 Days Review of Systems - Review of Systems Constitutional: No problems Breast: No problems ENT: No problems Cardiovascular: No problems Respiratory: No problems Gastrointestinal: No problems Genitourinary: No problems Musculoskeletal: No problems Neurological: No problems Skin: No problems Vital Signs - Temperature Temperature: 97.1 F Temperature Source: Temporal Artery Scan - Pulse Right Sitting Brachial Pulse Rate: 84 Pulse Assessment Method: Pulse Oximetry - Respirations Respiratory Rate: 16 Oxygen Delivery Method: Room Air O2 Sat by Pulse Oximetry: 98 - Blood Pressure Right Arm Sitting Blood Pressure: 117/69 Blood Pressure Mean: 85 Blood Pressure Source: Automatic Cuff Medical Screen Scoring (Pre) - Cervical Exam Dilation: Exam Deferred Effacement: Exam Deferred Membranes: Intact - Uterine Contractions Frequency: N/A Duration: N/A Intensity: N/A - Maternal Vital Signs Maternal Temperature: N/A Maternal Blood Pressure: N/A Signs of Preeclampsia: N/A Maternal Respirations: N/A - Pain Assessment Pain Location and Character: Head Pain Scale Used: Numeric (1 - 10) Pain Intensity: 8 Pain Description: *Acute, Pressure Pain Radiation Location: neck Pain Frequency: Intermittent Pain Duration: 4 Pain Duration Units: Days Pain Behavior: Vocalization - Maternal Trauma Maternal Trauma: N/A - Assessment Baseline FHR: 145 Heart Rate - NICHD Category: Category I (Normal) = 0 NST: Reactive Position: N/A - Total Score Total Score (Pre): 0 - Level of Risk Level of Risk: Low (0-5) Physician Notification (Pre) - Physician Notified Physician Notified Date: 12/03/17 Physician Notified Time: 17:30 Physician/Practitioner Notifed:: Tolu Spoke With: Tolu New Order Received: Yes - Notification Comment Comment: Rogelio sung\Dr. Motley, advsd , 30 12/27, c/o Headache x 4 days, hx of migraines, pt sleeping only 2-3hrs per night, BP WNL, no additional concerns. States pt may be d/c home, ok to advise pt to try Benadryl to assist with sleep. Follow up with Dr. Riley as scheduled or call for sooner appt if needed. Disposition - Disposition OB Disposition: Discharge to home, Written follow up instructions reviewed Discharge Date: 12/03/17 Discharge Time: 17:40 I agree with the RN Medical Screening Exam: Yes Risk & Benefit of care provided described in d/c instruction: Yes Diagnosis: HEADACHE ()
== END 2017-12-03 16:40 | disposition home or self-care (01) ==
LOC: FBPOP 16:29
PROVIDERS: ATTEND Obstetrics & Gynecology
DX: O99.89 Other specified diseases and conditions complicating pregnancy, childbirth and the puerperium (principal); Z3A.30 30 weeks gestation of pregnancy
CPT/HCPCS: 59025; 99213

== ENCOUNTER 2018-01-25 20:17 | Outpatient (CLI) | payer BC, OTHER ==
[2018-01-25 23:21] VITALS: BP 135/85; PULSE 80; RESP 16; TEMP 96.9
--- NOTE | 2018-01-28 16:51 | P.MSEPDOC ---
Presenting Problems - Arrival Data Date of Arrival on Unit: 01/25/18 Time of Arrival on Unit: 20:20 Mode of Transport: Ambulatory - Complaint OB-Reason for Admission/Chief Complaint: Possible Onset of Labor Comment: cntrx since 1849 Medical History - Information : 1 Para: 0 Term: 0 : 0 Abortions: Spontaneous or Elective: 0 Number of Living Children: 0 - Gestational Age Gestational Age by CHERYL (wks/days): 38 Weeks and 1 Days Review of Systems - Review of Systems Constitutional: No problems Breast: No problems ENT: No problems Cardiovascular: No problems Respiratory: No problems Gastrointestinal: No problems Genitourinary: No problems Musculoskeletal: No problems Neurological: No problems Skin: No problems Vital Signs - Temperature Temperature: 96.9 F Temperature Source: Temporal Artery Scan - Pulse Right Pulse Rate: 80 - Respirations Respiratory Rate: 16 - Blood Pressure Right Arm Blood Pressure: 135/85 Blood Pressure Mean: 101 Blood Pressure Source: Automatic Cuff Medical Screen Scoring (Pre) - Cervical Exam Dilation: 1-3 cm = 1 Effacement: More than 50% = 2 Membranes: Intact - Uterine Contractions Frequency: > 5 minutes apart = 1 Duration: > 40 seconds = 2 Intensity: N/A - Maternal Vital Signs Maternal Temperature: N/A Maternal Blood Pressure: N/A Signs of Preeclampsia: N/A Maternal Respirations: N/A - Assessment Baseline FHR: 130 Heart Rate - NICHD Category: Category I (Normal) = 0 NST: Reactive Position: N/A Station: N/A - Total Score Total Score (Pre): 6 - Level of Risk Level of Risk: Medium (6-9) Physician Notification (Pre) - Physician Notified Physician Notified Date: 01/25/18 Physician Notified Time: 22:30 Physician/Practitioner Notifed:: Dr Motley New Order Received: Yes - Notification Comment Comment: reported on c/o cntrx, hx, fhts reactive, cntrx pattern, vag exam x2 hours, vitals, pain. pt may stay another hour, may have IV hydration if desires, or may be d/c home at this time. call back if pt desires to stay. Disposition - Disposition OB Disposition: Discharge to home Discharge Date: 01/25/18 Discharge Time: 23:05 I agree with the RN Medical Screening Exam: Yes Risk & Benefit of care provided described in d/c instruction: Yes Diagnosis: FALSE LABOR AT OR AFTER 37 COMPLETED WEEKS OF GESTATION
== END 2018-01-25 23:05 | disposition home or self-care (01) ==
LOC: FBPOP 20:17
PROVIDERS: ATTEND Obstetrics & Gynecology
DX: O47.1 False labor at or after 37 completed weeks of gestation (principal); Z3A.38 38 weeks gestation of pregnancy
CPT/HCPCS: 59025; 99213

== ENCOUNTER 2018-01-26 07:52 | Inpatient (IN) | payer BC, OTHER ==
[2018-01-26] MEDS ORDERED: OXYTOCIN 10 UNIT/ML 1 ML VIAL IM PRN (09:20)
[2018-01-26] MEDS ORDERED: LIDOCAINE 1% (PF) 10 MG/ML (30 ML SDV) SQ PRN (09:20)
[2018-01-26] MEDS ORDERED: TERBUTALINE 1 MG/ML VIAL SQ PRN (09:20)
[2018-01-26] MEDS ORDERED: CARBOPROST TROMETHAMINE 250 MCG/ML 1 ML AMP IM PRN (09:20)
[2018-01-26] MEDS ORDERED: METHYLERGONOVINE 0.2 MG/ML 1 ML AMP IM PRN (09:20)
[2018-01-26] MEDS ORDERED: LACTATED RINGERS 1,000 ML IV SCH ×2 (09:30)
[2018-01-26] MEDS ORDERED: OXYTOCIN 20 UNITS/1000 ML NS 1,000 ML IV SCH ×2 (09:30→13:45)
[2018-01-26 09:36] LABS: Basophils % (A) 0 %; Eosinophils # (A) 0.1 k/uL (0-0.7); Eosinophils % (A) 1 %; HCT 33.4 % (34.0-46.0); HGB 11.3 gm/dL (11.4-16.0); Lymphocytes # (A) 2.6 k/uL (1.0-4.8); Lymphocytes % (A) 24 %; MCH 27.1 pg (25.0-35.0); MCV 79.9 fL (80.0-100.0); Mean Platelet Volume 8.3; Monocytes # (A) 0.4 k/uL (0-1.0); Monocytes % (A) 4 %; Neutrophils # (A) 7.4 k/uL (1.3-7.7); Neutrophils % (A) 69 %; Platelet Count 282 k/uL (150-450); Poikilocytosis Slight; RBC 4.18 m/uL (3.80-5.40); RDW 13.3 % (11.5-15.5); WBC 10.7 k/uL (4.0-11.0)
[2018-01-26] MEDS ORDERED: BUPIVACAINE (PF) 0.25% 30 ML VIAL ONE (09:40)
[2018-01-26] MEDS ORDERED: fentaNYL (PF) 50 MCG/ML 5 ML AMP ONE (09:40)
[2018-01-26] MEDS ORDERED: SODIUM CHLORIDE 0.9% 100 ML BAG ONE (09:40)
[2018-01-26] MEDS ORDERED: BUPIVACAINE (PF) 0.25% 25 ML, fentaNYL (PF) 200 MCG in SODIUM CHLORIDE 0.9% 71 ML EPIDURAL ONE (10:01)
--- NOTE | 2018-01-26 12:35 | P.HPOB ---
History of Present Illness H&P Date: 01/26/18 Chief Complaint: Labor 22 year old presents at 38 weeks 2 days in labor. HEr cervix changed to 3/ 80/-2 and she is rivka every 2-3 minutes. heart tones 130-135 with moderate variability and reactive. Review of Systems All systems: negative Constitutional: Denies chills, Denies fever Eyes: denies blurred vision, denies pain Ears, nose, mouth and throat: Denies headache, Denies sore throat Cardiovascular: Denies chest pain, Denies shortness of breath Respiratory: Denies cough Gastrointestinal: Denies abdominal pain, Denies diarrhea, Denies nausea, Denies vomiting Genitourinary: Denies dysuria, Denies hematuria Musculoskeletal: Denies myalgias Integumentary: Denies pruritus, Denies rash Neurological: Denies numbness, Denies weakness Psychiatric: Denies anxiety, Denies depression Endocrine: Denies fatigue, Denies weight change Past Medical History Past Medical History: No Reported History Additional Past Medical History / Comment(s): gallstones History of Any Multi-Drug Resistant Organisms: None Reported Past Surgical History: No Surgical Hx Reported Past Anesthesia/Blood Transfusion Reactions: No Reported Reaction Past Psychological History: Depression Smoking Status: Never smoker Past Alcohol Use History: None Reported Past Drug Use History: None Reported - Past Family History Mother Family Medical History: No Reported History Medications and Allergies Home Medications Medication Instructions Recorded Confirmed Type No Known Home Medications [No 12/03/17 01/26/18 History Known Home Medications] Allergies Allergy/AdvReac Type Severity Reaction Status Date / Time No Known Allergies Allergy Verified 01/26/18 08:06 Exam Osteopathic Statement: *. No significant issues noted on an osteopathic structural exam other than those noted in the History and Physical/Consult. - Vital Signs Vital signs: Vital Signs Temp Pulse Resp BP 01/26/18 09:26 97.5 F L 90 18 127/91 01/26/18 09:15 16 Intake and Output 01/25/18 01/26/18 01/26/18 22:59 06:59 14:59 Other: Weight 63.957 kg Heart: Regular rate and rhythm Lungs: Clear to auscultation bilaterally Abdomen: Soft, nontender Extremities: Negative Homans sign Results Result Diagrams: 01/26/18 09:25 Abnormal Lab Results - Last 24 Hours (Table) 01/26/18 Range/Units 09:25 Hgb 11.3 L (11.4-16.0) gm/dL Hct 33.4 L (34.0-46.0) % MCV 79.9 L (80.0-100.0) fL Assessment and Plan (1) Normal labor Current Visit: Yes Status: Acute Code(s): O80 - ENCOUNTER FOR FULL-TERM UNCOMPLICATED DELIVERY; Z37.9 - OUTCOME OF DELIVERY, UNSPECIFIED SNOMED Code(s ): 04798093 Plan: 1. admit to [facility] 2. expectant management 3. anticipate normal vaginal delivery
--- NOTE | 2018-01-26 12:36 | P.MSEPDOC ---
Presenting Problems - Arrival Data Date of Arrival on Unit: 01/26/18 Time of Arrival on Unit: 07:52 Mode of Transport: Wheelchair - Complaint OB-Reason for Admission/Chief Complaint: Possible Onset of Labor, Normal Show Medical History - Information : 1 Para: 0 Term: 0 : 0 Abortions: Spontaneous or Elective: 0 Number of Living Children: 0 - Gestational Age Gestational Age by CHERYL (wks/days): 38 Weeks and 2 Days Review of Systems - Review of Systems Constitutional: No problems Breast: No problems ENT: No problems Cardiovascular: No problems Respiratory: No problems Gastrointestinal: No problems Genitourinary: No problems Musculoskeletal: No problems Neurological: No problems Skin: No problems Vital Signs - Temperature Temperature: 97.5 F Temperature Source: Temporal Artery Scan - Pulse Right Pulse Rate: 90 - Respirations Respiratory Rate: 18 - Blood Pressure Right Arm Blood Pressure: 127/91 Blood Pressure Mean: 103 Medical Screen Scoring (Pre) - Cervical Exam Dilation: 1-3 cm = 1 Effacement: More than 50% = 2 - Uterine Contractions Frequency: > or = 36 weeks =2 Duration: > 40 seconds = 2 Intensity: Contraction palpated strong = 1 - Maternal Vital Signs Maternal Temperature: N/A Maternal Blood Pressure: N/A Signs of Preeclampsia: N/A - Assessment Baseline FHR: 140 Heart Rate - NICHD Category: Category I (Normal) = 0 NST: Reactive Position: N/A Station: N/A - Total Score Total Score (Pre): 8 - Level of Risk Level of Risk: Medium (6-9) Physician Notification (Pre) - Physician Notified Physician Notified Date: 01/26/18 Physician Notified Time: 09:15 Physician/Practitioner Notifed:: Dr Riley - Notification Comment Comment: reported on pts c/o cntrx, was in tr last night. reported on fhts, cntrx pattern, vag exam, bleeding, pts pain. orders to admit, start IV, may have epidural Disposition - Disposition OB Disposition: Admit Transferred to:: st 2 I agree with the RN Medical Screening Exam: Yes Risk & Benefit of care provided described in d/c instruction: Yes Diagnosis: ENCOUNTER FOR FULL-TERM UNCOMPLICATED DELIVERY
[2018-01-26] MEDS ORDERED: BENZOCAINE/MENTHOL SPRAY 1 GM/SPRAY AEROSOL TOPICAL PRN (13:45)
[2018-01-26] MEDS ORDERED: WITCH HAZEL 1 EACH MED..PAD TOPICAL PRN (13:45)
[2018-01-26] MEDS ORDERED: ACETAMINOPHEN TAB 325 MG TAB PO PRN (13:45)
[2018-01-26] MEDS ORDERED: ZOLPIDEM 5 MG TAB PO PRN (13:45)
[2018-01-26] MEDS ORDERED: diphenhydrAMINE 25 MG CAP PO PRN (13:45)
[2018-01-26] MEDS ORDERED: HYDROCORTISONE 2.5% RECTAL CREAM 30 GM TUBE RECTAL PRN (13:45)
[2018-01-26] MEDS ORDERED: SIMETHICONE 80 MG CHEWABLE PO PRN (13:45)
[2018-01-26] MEDS ORDERED: LANOLIN CREAM 5 GM TUBE TOPICAL PRN (13:45)
[2018-01-26] MEDS ORDERED: diphenhydrAMINE 50 MG CAP PO PRN (13:45)
[2018-01-26] MEDS ORDERED: diphenhydrAMINE 50 MG/ML 1 ML VIAL IVP PRN ×2 (13:45)
[2018-01-26] MEDS: IBUPROFEN 600 MG TAB PO PRN ×2 (17:27→23:36)
[2018-01-26] MEDS: SENNOSIDES-DOCUSATE SODIUM 1 EACH TAB PO SCH (22:32)
--- NOTE | 2018-01-27 04:40 | P.PROBDLV ---
Vaginal Delivery Note - . Vaginal Delivery Note: 22-year-old presents at 38 weeks and 2 days and labor. Her cervix is 2-3 cm dilated, 100% effaced, and -2 station. She is rivka every 2-4 minutes. heart tones are 130-135 with moderate variability and reactive. She did get an epidural and was comfortable with this. Amniotomy was performed just before noon when she was completely dilated by 1318, pushed and delivered a viable male infant over intact perineum a.m. under epidural anesthesia at 1329. Head delivered OA, nuchal cord 1 easily reduced, anterior shoulder delivered gentle downward traction followed by posterior shoulder and rest of body. Nose and mouth bulb suctioned, cord clamped and cut, infant placed mother's abdomen. Apgars 8, 9, weight 5 lbs. 12 oz. Placenta delivered spontaneously, intact with three-vessel cord at 1332. Vagina, cervix, and perineum were inspected. Bilateral labial lacerations were repaired with 3-0 Vicryl. Estimated blood loss 150 mL. Mother and baby in stable condition.
[2018-01-27] MEDS: IBUPROFEN 600 MG TAB PO PRN (07:46)
[2018-01-27] MEDS: SENNOSIDES-DOCUSATE SODIUM 1 EACH TAB PO SCH (07:46)
[2018-01-27 08:10] LABS: Basophils % (A) 0 %; Eosinophils # (A) 0.1 k/uL (0-0.7); Eosinophils % (A) 1 %; HCT 26.3 % (34.0-46.0); Lymphocytes # (A) 2.6 k/uL (1.0-4.8); Lymphocytes % (A) 26 %; MCHC 33.4 g/dL (31.0-37.0); MCV 80.7 fL (80.0-100.0); Mean Platelet Volume 8.4; Monocytes # (A) 0.3 k/uL (0-1.0); Monocytes % (A) 3 %; Neutrophils % (A) 68 %; Platelet Count 214 k/uL (150-450); Poikilocytosis Slight; RBC 3.26 m/uL (3.80-5.40); RDW 13.3 % (11.5-15.5); WBC 10.2 k/uL (4.0-11.0)
[2018-01-27 08:11] LABS: HGB 8.8 gm/dL (11.4-16.0)
--- NOTE | 2018-01-27 10:18 | P.DS ---
Providers Date of admission: 01/26/18 09:13 Expected date of discharge: 01/27/18 Attending physician: Corazon Riley Primary care physician: Stated None - Discharge Diagnosis(es) (1) Normal labor Current Visit: Yes Status: Resolved (2) Normal vaginal delivery Current Visit: Yes Status: Acute Hospital Course: Patient presented in active labor. She underwent a normal vaginal delivery and had an uncomplicated course. She'll be discharged home day #1 in stable condition to follow-up with me in 6 weeks. She denies nausea, vomiting, chest pain, shortness of breath or calf pain. She is ambulating voiding without difficulty. Plan - Discharge Summary New Discharge Prescriptions: New Ibuprofen [Motrin] 600 mg PO Q6HR PRN #30 tab PRN Reason: Mild Pain Or Fever >= 100.5 Discharge Medication List Ibuprofen [Motrin] 600 mg PO Q6HR PRN #30 tab 01/27/18 [Rx] Follow up Appointment(s)/Referral(s): Corazon Riley DO [Doctor of Osteopathic Medicine] - 6 Weeks Discharge Disposition: HOME SELF-CARE
[2018-01-27 11:23] VITALS: RESP 18
[2018-01-27 12:08] VITALS: BP 108/70; PULSE 78; TEMP 98.5
== END 2018-01-27 14:54 | disposition home or self-care (01) | DRG 775 ==
LOC: FBPOP 07:52 → 4FBP 09:13
PROVIDERS: ADMIT Obstetrics & Gynecology; ATTEND Obstetrics & Gynecology
PROC: 10E0XZZ Delivery of Products of Conception, External Approach (ICD-10-PCS; principal; 2018-01-26)
PROC: 0HQ9XZZ Repair Perineum Skin, External Approach (ICD-10-PCS; 2018-01-26)
PROC: 00HU33Z Insertion of Infusion Device into Spinal Canal, Percutaneous Approach (ICD-10-PCS; 2018-01-26)
PROC: 3E0R3BZ Introduction of Anesthetic Agent into Spinal Canal, Percutaneous Approach (ICD-10-PCS; 2018-01-26)
DX: O69.81X0 Labor and delivery complicated by cord around neck, without compression, not applicable or unspecified (principal); O99.344 Other mental disorders complicating childbirth; F32.9 Major depressive disorder, single episode, unspecified; O70.0 First degree perineal laceration during delivery; O99.62 Diseases of the digestive system complicating childbirth; K80.20 Calculus of gallbladder without cholecystitis without obstruction; Z37.0 Single live birth; Z3A.38 38 weeks gestation of pregnancy
CPT/HCPCS: 59025; 84112; 85025; 88307; 99213

== ENCOUNTER 2018-07-06 14:11 | Emergency (ER) | payer BC, OTHER ==
--- NOTE | 2018-07-06 15:08 | ED ---
General Adult HPI - General Chief complaint: Recheck/Abnormal Lab/Rx Stated complaint: Hole in gall bladder wall just had us today Source: patient Mode of arrival: ambulatory Limitations: no limitations - History of Present Illness Initial comments: Dictation was produced using [employer] dictation software. please excuse any grammatical, word or spelling errors. Chief Complaint: 22-year-old female with past medical history of cholelithiasis presents with right upper quadrant pain. She had ultrasound performed as an outpatient and was told that she has a hole in her gallbladder. History of Present Illness: She is a 22-year-old female she was experiencing abdominal pain since Friday. Patient states that she [facility]. She was value by her primary care physician. Patient was immediately sent to ultrasound for outpatient abdominal ultrasound. She had ultrasound performed and was told that there is a hole in her gallbladder. Patient states she's been having abdominal pain since Friday. She states that this pain is postprandial localized to right upper quadrant. Patient also complaining of some shoulder tenderness on both sides. He has any constitutional symptoms. Patient denies any history of diarrhea. She denies any emesis. The ROS documented in this emergency department record has been reviewed and confirmed by me. Those systems with pertinent positive or negative responses have been documented in the HPI. All other systems are other negative and/or noncontributory. - Related Data Home Medications Medication Instructions Recorded Confirmed Citalopram Hydrobromide [CeleXA] 20 mg PO DAILY 07/06/18 07/06/18 Lillian 1 tab PO DAILY 07/06/18 07/06/18 Previous Rx's Medication Instructions Recorded Famotidine [Pepcid] 40 mg PO HS #30 tab 07/06/18 Allergies Allergy/AdvReac Type Severity Reaction Status Date / Time No Known Allergies Allergy Verified 07/06/18 16:15 Review of Systems ROS Statement: Those systems with pertinent positive or pertinent negative responses have been documented in the HPI. ROS Other: All systems not noted in ROS Statement are negative. Past Medical History Past Medical History: No Reported History Additional Past Medical History / Comment(s): gallstones History of Any Multi-Drug Resistant Organisms: None Reported Past Surgical History: No Surgical Hx Reported Past Anesthesia/Blood Transfusion Reactions: No Reported Reaction Past Psychological History: Depression Smoking Status: Never smoker Past Alcohol Use History: None Reported Past Drug Use History: None Reported - Past Family History Mother Family Medical History: No Reported History General Exam - General Exam Comments Initial Comments: PHYSICAL EXAM: General Impression: Alert and oriented x3, not in acute distress HEENT: Normocephalic atraumatic, extra-ocular movements intact, pupils equal and reactive to light bilaterally, mucous membranes moist. Cardiovascular: Heart regular rate and rhythm, S1&S2 audible, no murmurs, rubs or gallops Chest: Lungs clear to auscultation bilaterally, no rhonchi, no wheeze, no rales Abdomen: Tenderness to the right upper quadrant. Positive Stockton sign. Musculoskeletal: Pulses present and equal in all extremities, no peripheral edema Motor: Power 5/5 bilaterally, no focal deficits noted Neurological: CN II-XII grossly intact, no focal motor or sensory deficits noted Skin: Intact with no visualized rashes Psych: Normal affect and mood Limitations: no limitations Course Vital Signs 07/06/18 14:43 Temperature 98.1 F Pulse Rate 86 Respiratory 20 Rate Blood Pressure 105/76 O2 Sat by Pulse 100 Oximetry Medical Decision Making - Medical Decision Making ED course: 22 Year-old female with no significant comorbidities presents with abnormal ultrasound of the abdomen performed outpatient. Vital signs upon arrival are within normal limits. Ultrasound of the abdomen was reviewed by myself. There appears to be a common to artifact the anterior wall of gallbladder suggesting gallbladder perforation. She appears stable at this time. She does have significant right upper quadrant tenderness.Laboratory evaluation obtained. CBC is unremarkable. There is some microcytosis. Coag panel is unremarkable. Metabolic panel is negative. Normal labs are negative. No elevation of phosphatase. Urinalysis is negative. Beta-hCG is negative. Ultrasound was read by radiologist showing mild bile duct dilatation. Acute abdominal series shows no acute processes. There is a nonobstructive bowel gas pattern. His clinical presentation more consistent with gastritis versus peptic ulcer disease instead of gallbladder pathology. Patient given prescription for Pepcid. Told to follow up with primary care physician. Patient given referral information to GI doctor should her symptoms continue. Patient understandable and agreeable to plan. - Lab Data Result diagrams: 07/06/18 15:40 07/06/18 15:40 Lab Results 07/06/18 07/06/18 07/06/18 Range/Units 15:35 15:35 15:40 WBC 8.3 (4.0-11.0) k/uL RBC 4.56 (3.80-5.40) m/uL Hgb 10.9 L (11.4-16.0) gm/dL Hct 35.2 (34.0-46.0) % MCV 77.2 L (80.0-100.0) fL MCH 23.9 L (25.0-35.0) pg MCHC 30.9 L (31.0-37.0) g/dL RDW 16.1 H (11.5-15.5) % Plt Count 281 (150-450) k/uL Neutrophils % 74 % Lymphocytes % 19 % Monocytes % 4 % Eosinophils % 1 % Basophils % 0 % Neutrophils # 6.2 (1.3-7.7) k/uL Lymphocytes # 1.6 (1.0-4.8) k/uL Monocytes # 0.4 (0-1.0) k/uL Eosinophils # 0.1 (0-0.7) k/uL Basophils # 0.0 (0-0.2) k/uL Hypochromasia Slight Anisocytosis Slight Microcytosis Slight PT (9.0-12.0) sec INR (<1.2) Sodium (137-145) mmol/L Potassium (3.5-5.1) mmol/L Chloride (98-107) mmol/L Carbon Dioxide (22-30) mmol/L Anion Gap mmol/L BUN (7-17) mg/dL Creatinine (0.52-1.04) mg/dL Est GFR (CKD-EPI)AfAm (>60 ml/min/1.73 sqM) Est GFR (CKD-EPI)NonAf (>60 ml/min/1.73 sqM) Glucose (74-99) mg/dL Calcium (8.4-10.2) mg/dL Magnesium (1.6-2.3) mg/dL Total Bilirubin (0.2-1.3) mg/dL AST (14-36) U/L ALT (9-52) U/L Alkaline Phosphatase (38-126) U/L Total Protein (6.3-8.2) g/dL Albumin (3.5-5.0) g/dL Lipase (23-300) U/L Urine Color Yellow Urine Appearance Clear (Clear) Urine pH 5.5 (5.0-8.0) Ur Specific Norton 1.023 (1.001-1.035) Urine Protein Negative (Negative) Urine Glucose (UA) Negative (Negative) Urine Ketones Negative (Negative) Urine Blood Negative (Negative) Urine Nitrite Negative (Negative) Urine Bilirubin Negative (Negative) Urine Urobilinogen <2.0 (<2.0) mg/dL Ur Leukocyte Esterase Small H (Negative) Urine RBC 1 (0-5) /hpf Urine WBC 1 (0-5) /hpf Ur Squamous Epith Cells 5 H (0-4) /hpf Urine Mucus Few H (None) /hpf Urine HCG, Qual Not Detected (Not Detectd) 07/06/18 07/06/18 Range/Units 15:40 15:40 WBC (4.0-11.0) k/uL RBC (3.80-5.40) m/uL Hgb (11.4-16.0) gm/dL Hct (34.0-46.0) % MCV (80.0-100.0) fL MCH (25.0-35.0) pg MCHC (31.0-37.0) g/dL RDW (11.5-15.5) % Plt Count (150-450) k/uL Neutrophils % % Lymphocytes % % Monocytes % % Eosinophils % % Basophils % % Neutrophils # (1.3-7.7) k/uL Lymphocytes # (1.0-4.8) k/uL Monocytes # (0-1.0) k/uL Eosinophils # (0-0.7) k/uL Basophils # (0-0.2) k/uL Hypochromasia Anisocytosis Microcytosis PT 11.0 (9.0-12.0) sec INR 1.1 (<1.2) Sodium 141 (137-145) mmol/L Potassium 4.1 (3.5-5.1) mmol/L Chloride 106 (98-107) mmol/L Carbon Dioxide 26 (22-30) mmol/L Anion Gap 9 mmol/L BUN 12 (7-17) mg/dL Creatinine 0.68 (0.52-1.04) mg/dL Est GFR (CKD-EPI)AfAm >90 (>60 ml/min/1.73 sqM) Est GFR (CKD-EPI)NonAf >90 (>60 ml/min/1.73 sqM) Glucose 89 (74-99) mg/dL Calcium 8.9 (8.4-10.2) mg/dL Magnesium 2.0 (1.6-2.3) mg/dL Total Bilirubin 0.3 (0.2-1.3) mg/dL AST 16 (14-36) U/L ALT 26 (9-52) U/L Alkaline Phosphatase 100 (38-126) U/L Total Protein 7.1 (6.3-8.2) g/dL Albumin 3.9 (3.5-5.0) g/dL Lipase 48 (23-300) U/L Urine Color Urine Appearance (Clear) Urine pH (5.0-8.0) Ur Specific Norton (1.001-1.035) Urine Protein (Negative) Urine Glucose (UA) (Negative) Urine Ketones (Negative) Urine Blood (Negative) Urine Nitrite (Negative) Urine Bilirubin (Negative) Urine Urobilinogen (<2.0) mg/dL Ur Leukocyte Esterase (Negative) Urine RBC (0-5) /hpf Urine WBC (0-5) /hpf Ur Squamous Epith Cells (0-4) /hpf Urine Mucus (None) /hpf Urine HCG, Qual (Not Detectd) Disposition Clinical Impression: Abdominal pain Disposition: HOME SELF-CARE Instructions: Abdominal Pain (ED) Prescriptions: Famotidine [Pepcid] 40 mg PO HS #30 tab Is patient prescribed a controlled substance at d/c from ED?: No Referrals: Esther Little MD [Primary Care Provider] - 1-2 days Time of Disposition: 16:43
[2018-07-06 15:53] LABS: Appearance,Urine Clear (Clear); Bilirubin,Urine Negative (Negative); Blood,Urine Negative (Negative); Color,Urine Yellow; Glucose,Urine (UA) Negative (Negative); Ketones,Urine Negative (Negative); Leukocyte Esterase,Urine Small (Negative); Mucus,Urine Few /hpf; Nitrite,Urine Negative (Negative); PH, Urine 5.5 (5.0-8.0); Protein,Urine Negative (Negative); RBC,Urine 1 /hpf (0-5); Specific Gravity,Urine 1.023 (1.001-1.035); Squamous Epithelial Cell,Urine 5 /hpf (0-4); Urobilinogen,Urine <2.0 mg/dL (<2.0); WBC,Urine 1 /hpf (0-5)
[2018-07-06 16:00] LABS: Anisocytosis Slight; Basophils % (A) 0 %; Eosinophils # (A) 0.1 k/uL (0-0.7); Eosinophils % (A) 1 %; HCT 35.2 % (34.0-46.0); HGB 10.9 gm/dL (11.4-16.0); Hypochromasia Slight; Lymphocytes # (A) 1.6 k/uL (1.0-4.8); Lymphocytes % (A) 19 %; MCH 23.9 pg (25.0-35.0); MCHC 30.9 g/dL (31.0-37.0); MCV 77.2 fL (80.0-100.0); Mean Platelet Volume 7.4; Microcytosis Slight; Monocytes # (A) 0.4 k/uL (0-1.0); Monocytes % (A) 4 %; Neutrophils # (A) 6.2 k/uL (1.3-7.7); Neutrophils % (A) 74 %; Platelet Count 281 k/uL (150-450); RBC 4.56 m/uL (3.80-5.40); RDW 16.1 % (11.5-15.5); WBC 8.3 k/uL (4.0-11.0)
[2018-07-06 16:09] LABS: ALT 26 U/L (9-52); AST 16 U/L (14-36); Albumin 3.9 g/dL (3.5-5.0); Alkaline Phosphatase 100 U/L (38-126); Anion Gap 9 mmol/L; Blood Urea Nitrogen 12 mg/dL (7-17); Calcium 8.9 mg/dL (8.4-10.2); Carbon Dioxide 26 mmol/L (22-30); Chloride 106 mmol/L (98-107); Glucose 89 mg/dL (74-99); Lipase 48 U/L (23-300); Potassium 4.1 mmol/L (3.5-5.1); Sodium 141 mmol/L (137-145); Total Bilirubin 0.3 mg/dL (0.2-1.3); Total Protein 7.1 g/dL (6.3-8.2)
[2018-07-06 16:11] LABS: INR 1.1 (<1.2)
--- NOTE | 2018-07-06 16:30 | XR ---
EXAMINATION TYPE: XR abdomen acute w cxr DATE OF EXAM: 07/06/2018 CLINICAL HISTORY: Right-sided chest and abdominal pain TECHNIQUE: Single frontal view of chest is obtained. Supine and upright views of the abdomen are acq uired. COMPARISON: None. FINDINGS: The lungs are grossly clear without pleural effusion or pneumothorax. Cardiac silhouette size appears within normal limits. Osseous structures are intact. Gas is noted in nondistended stomach and small bowel loops. Gas is seen in nondistended colon. No pneumoperitoneum, visceromegaly, or suspicious calcification is identified. The osseous structures a re intact. IMPRESSION: 1. No acute pulmonary process. 2. Overall nonobstructive bowel gas pattern.
[2018-07-06 16:57] VITALS: BP 116/80; PULSE 89; RESP 18; TEMP 98.8
== END 2018-07-06 16:57 | disposition home or self-care (01) ==
LOC: EC 14:11
DX: R10.11 Right upper quadrant pain (principal); K83.8 Other specified diseases of biliary tract; F32.9 Major depressive disorder, single episode, unspecified; Z79.3 Long term (current) use of hormonal contraceptives; Z79.899 Other long term (current) drug therapy
CPT/HCPCS: 36415; 74022; 80053; 81001; 81025; 83690; 83735; 85025; 85610; 99284

== ENCOUNTER → 2018-07-06 | Outpatient (CLI) | payer BC, OTHER ==
--- NOTE | 2018-07-06 15:26 | US ---
EXAMINATION TYPE: US abdomen complete DATE OF EXAM: 07/06/2018 COMPARISON: NONE CLINICAL HISTORY: 22-year-old female R10.11 RUQ ABD PAIN. History of gallbladder gb stones that patie nt says she passed last year, RUQ pain x 3 days TECHNIQUE: Multiple sonographic images of the abdomen are obtained. FINDINGS: EXAM MEASUREMENTS: Liver Length: 14.8 cm Gallbladder Wall: 0.3 cm CBD: 0.7 cm Spleen: 11.8 cm Right Kidney: 9.0 x 3.9 x 3.9 cm Left Kidney: 12.1 x 4.6 x 5.0 cm Pancreas: wnl Liver: wnl Gallbladder: single comet tail artifact seen on anterior wall which can be seen in the setting of ad enomyomatosis. No abnormal distention, wall thickening, or pericholecystic fluid. Evidence for sonographic Stockton's sign: no CBD: wnl Spleen: wnl Right Kidney: wnl Left Kidney: wnl Upper IVC: wnl Abd Aorta: wnl IMPRESSION: The bile duct is dilated at 7 mm. Recommend correlation with alkaline phosphatase and bilirubin level s to exclude biliary obstruction.
== END ==
LOC: RADUSWWP 13:06
PROVIDERS: ATTEND Internal Medicine
DX: K83.8 Other specified diseases of biliary tract (principal)
CPT/HCPCS: 76700

== ENCOUNTER 2019-05-19 21:06 | Emergency (ER) | payer OTHER ==
[2019-05-19 21:30] VITALS: TEMP 98
[2019-05-19] MEDS ORDERED: SODIUM CHLORIDE 0.9% 1,000 ML IV STA (21:58)
[2019-05-19 22:11] LABS: Appearance,Urine Clear (Clear); Bilirubin,Urine Negative (Negative); Blood,Urine Negative (Negative); Color,Urine Colorless; Glucose,Urine (UA) Negative (Negative); Ketones,Urine Negative (Negative); Leukocyte Esterase,Urine Negative (Negative); Nitrite,Urine Negative (Negative); Protein,Urine Negative (Negative); Specific Gravity,Urine 1.004 (1.001-1.035); Urobilinogen,Urine <2.0 mg/dL (<2.0)
[2019-05-19 22:23] LABS: Amphetamine Screen,Urine Not Detected (NotDetected); Barbiturate Screen,Urine Not Detected (NotDetected); Benzodiazepines Screen,Urine Not Detected (NotDetected); Cocaine Screen,Urine Not Detected (NotDetected); Methadone Screen, Urine Not Detected (NotDetected); Opiate Screen,Urine Not Detected (NotDetected); Oxycodone Screen, Urine Not Detected (NotDetected); Phencyclidine Screen,Urine Not Detected (NotDetected); Tricyclic Antidepressant,Urine Not Detected (NotDetected); Urn Cannabinoid Scrn Not Detected (NotDetected)
[2019-05-19 22:28] LABS: Basophils # (A) 0.1 k/uL (0-0.2); Basophils % (A) 0 %; Eosinophils # (A) 0.1 k/uL (0-0.7); Eosinophils % (A) 1 %; HCT 40.3 % (34.0-46.0); Lymphocytes % (A) 17 %; MCH 27.3 pg (25.0-35.0); MCHC 32.4 g/dL (31.0-37.0); MCV 84.3 fL (80.0-100.0); Monocytes # (A) 0.7 k/uL (0-1.0); Monocytes % (A) 6 %; Neutrophils # (A) 8.8 k/uL (1.3-7.7); Neutrophils % (A) 75 %; Platelet Count 299 k/uL (150-450); RBC 4.78 m/uL (3.80-5.40); RDW 14.4 % (11.5-15.5); WBC 11.7 k/uL (3.8-10.6)
[2019-05-19] MEDS ORDERED: ORPHENADRINE 30 MG/ML 2 ML VIAL IVP STA (22:29)
[2019-05-19 22:36] LABS: Partial Thromboplastin Time 24.4 sec (22.0-30.0); Prothrombin Time 10.4 sec (9.0-12.0)
[2019-05-19 22:37] LABS: ALT 19 U/L (9-52); AST 20 U/L (14-36); African American GFR (CKD) >90 (>60 ml/min/1.73 sqM); Albumin 4.4 g/dL (3.5-5.0); Alcohol <10 mg/dL; Alkaline Phosphatase 119 U/L (38-126); Anion Gap 9 mmol/L; Blood Urea Nitrogen 14 mg/dL (7-17); Calcium 9.9 mg/dL (8.4-10.2); Carbon Dioxide 26 mmol/L (22-30); Chloride 104 mmol/L (98-107); Glucose 106 mg/dL (74-99); Potassium 4.4 mmol/L (3.5-5.1); Sodium 139 mmol/L (137-145); Total Bilirubin 0.3 mg/dL (0.2-1.3); Total Protein 7.9 g/dL (6.3-8.2)
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
[2019-05-20 00:05] VITALS: BP 118/74; PULSE 98; RESP 16
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
--- NOTE | 2019-05-20 00:11 | XR ---
EXAM: XR Left Knee, 3 views CLINICAL HISTORY: ITS.REASON XR Reason: Pain TECHNIQUE: Three views of the left knee. COMPARISON: No relevant prior studies available. FINDINGS: Bones/joints: Unremarkable. No acute fracture. No dislocation. Soft tissues: Unremarkable. IMPRESSION: Normal left knee x-rays.
== END 2019-05-20 01:58 | disposition home or self-care (01) ==
LOC: EC 21:06
DX: M79.606 Pain in leg, unspecified (principal); M54.2 Cervicalgia; R10.9 Unspecified abdominal pain; M25.562 Pain in left knee; M79.642 Pain in left hand; M62.838 Other muscle spasm; F32.9 Major depressive disorder, single episode, unspecified; F17.200 Nicotine dependence, unspecified, uncomplicated; Z79.3 Long term (current) use of hormonal contraceptives; Z79.899 Other long term (current) drug therapy; V43.52XA Car driver injured in collision with other type car in traffic accident, initial encounter; Y92.415 Exit ramp or entrance ramp of street or highway as the place of occurrence of the external cause; Y99.0 Civilian activity done for income or pay
CPT/HCPCS: 99285; 96374; 96361 ×3; 36415; 93005; 86900; 86901; 80053; 84484; 85025; 85610; 85730; 86850; 81003; 81025; 80306; 80320; 73130; 73562; 72125; 70450; 71260; 74177; J2360; Q9967

== ENCOUNTER 2019-05-21 14:43 | Emergency (ER) | payer OTHER ==
[2019-05-21 14:51] VITALS: RESP 18
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
[2019-05-21 16:41] VITALS: BP 113/66; PULSE 78; TEMP 98.8
== END 2019-05-21 16:38 | disposition home or self-care (01) ==
LOC: EC 14:43
DX: M54.2 Cervicalgia (principal); R13.10 Dysphagia, unspecified; R22.1 Localized swelling, mass and lump, neck; R68.84 Jaw pain; F32.9 Major depressive disorder, single episode, unspecified; F41.9 Anxiety disorder, unspecified; Z87.891 Personal history of nicotine dependence; Z79.3 Long term (current) use of hormonal contraceptives; Z79.899 Other long term (current) drug therapy; V49.9XXA Car occupant (driver) (passenger) injured in unspecified traffic accident, initial encounter; Y92.410 Unspecified street and highway as the place of occurrence of the external cause
CPT/HCPCS: 70491; 99284; Q9967

== ENCOUNTER 2020-04-03 01:49 | Emergency (ER) | payer OTHER ==
[2020-04-03 01:56] VITALS: RESP 18; TEMP 99
[2020-04-03] MEDS ORDERED: MECLIZINE 12.5 MG TAB PO STA (02:39)
[2020-04-03 02:58] LABS: Basophils % (A) 0 %; Eosinophils # (A) 0.2 k/uL (0-0.7); Eosinophils % (A) 3 %; HCT 41.2 % (34.0-46.0); HGB 13.8 gm/dL (11.4-16.0); Lymphocytes # (A) 3.1 k/uL (1.0-4.8); Lymphocytes % (A) 34 %; MCH 29.3 pg (25.0-35.0); MCHC 33.4 g/dL (31.0-37.0); MCV 87.7 fL (80.0-100.0); Mean Platelet Volume 7.7; Monocytes # (A) 0.5 k/uL (0-1.0); Monocytes % (A) 5 %; Neutrophils # (A) 5.3 k/uL (1.3-7.7); Neutrophils % (A) 57 %; Platelet Count 286 k/uL (150-450); RDW 13.4 % (11.5-15.5); WBC 9.3 k/uL (3.8-10.6)
--- NOTE | 2020-04-03 02:58 | ED ---
General Adult HPI - General Source: patient, RN notes reviewed, old records reviewed Mode of arrival: ambulatory Limitations: no limitations <Pieter Simms - Last Filed: 04/03/20 02:57> <Soha Hatch - Last Filed: 04/03/20 07:19> - General Chief complaint: Dizziness Stated complaint: Dizziness Time Seen by Provider: 04/03/20 01:57 - History of Present Illness Initial comments: 24-year-old female patient presents ED for evaluation of dizziness vertigo. She reports she has a history of vertigo however she has been taking hydroxyzine and it has not been helping. Denies any recent falls or trauma. Denies any headaches. Denies any changes in vision. Denies any other complaints. Systemic: Pt denies fatigue, fever/chills, rash. Pt denies weakness, night sweats, weight loss. Neuro: Pt denies headache, visual disturbances, syncope or pre-syncope. HEENT: Pt denies ocular discharge or irritation, otalgia, rhinorrhea, pharyngitis or notable lymphadenopathy. Cardiopulmonary: Pt denies chest pain, SOB, heart palpitations, dyspnea on exertion. Abdominal/GI: Pt denies abdominal pain, n/v/d. : Pt denies dysuria, burning w/ urination, frequency/urgency. Denies new onset urinary or bowel incontinence. MSK: Pt denies myalgia, loss of strength or function in extremities. Neuro: Pt denies new onset weakness. (Pieter Simms) - Related Data Home Medications Medication Instructions Recorded Confirmed Citalopram Hydrobromide [CeleXA] 20 mg PO DAILY 07/06/18 07/06/18 Lillian 1 tab PO DAILY 07/06/18 07/06/18 Previous Rx's Medication Instructions Recorded Famotidine [Pepcid] 40 mg PO HS #30 tab 07/06/18 Cyclobenzaprine [Flexeril] 10 mg PO TID #12 tab 05/20/19 Ibuprofen [Motrin] 600 mg PO Q6HR PRN #20 tab 05/20/19 Meclizine [Antivert] 12.5 mg PO Q8HR PRN #28 tablet 04/03/20 Allergies Allergy/AdvReac Type Severity Reaction Status Date / Time No Known Allergies Allergy Verified 07/13/20 01:55 Review of Systems ROS Other: All systems not noted in ROS Statement are negative. <Pieter Simms - Last Filed: 04/03/20 02:57> ROS Other: All systems not noted in ROS Statement are negative. <HatchSoha Areli - Last Filed: 04/03/20 07:19> ROS Statement: Those systems with pertinent positive or pertinent negative responses have been documented in the HPI. Past Medical History Past Medical History: No Reported History Additional Past Medical History / Comment(s): gallstones, vertigo, anemia History of Any Multi-Drug Resistant Organisms: None Reported Past Surgical History: No Surgical Hx Reported Past Anesthesia/Blood Transfusion Reactions: No Reported Reaction Past Psychological History: Anxiety, Depression Smoking Status: Former smoker Past Alcohol Use History: Occasional Past Drug Use History: None Reported - Past Family History Mother Family Medical History: No Reported History <Pieter Simms - Last Filed: 04/03/20 02:57> General Exam Limitations: no limitations <Pieter Simms - Last Filed: 04/03/20 02:57> - General Exam Comments Initial Comments: Constitutional: NAD, AOX3, Pt has pleasant affect. HEENT: NC/AT, trachea midline, neck supple, no lymphadenopathy. Posterior pharynx non erythematous, without exudates. External ears appear normal, without discharge. Mucous membranes moist. Eyes PERRLA, EOM intact. There is no scleral icterus. No pallor noted. Cardiopulmonary: RRR, no murmurs, rubs or gallops, no JVD noted. Lungs CTAB in anterior and posterior juan. No peripheral edema. Abdominal exam: Abdomen soft and non-distended. Abdomen non-tender to palpation in all 4 quadrants. Bowel sounds active in LLQ. No hepatosplenomegaly. No ecchymosis Neuro: CN II-XII intact. No nuchal rigidity. No raccon eyes, no gutierrez sign, no hemotympanum. No cervical spinal tenderness. MSK:Full active ROM in upper and lower extremities, 5/5 stregnth. (Pieter Simms) Course Vital Signs 04/03/20 04/03/20 01:50 04:52 Temperature 99 F Pulse Rate 97 90 Respiratory 18 18 Rate Blood Pressure 133/84 130/78 O2 Sat by Pulse 98 100 Oximetry Medical Decision Making - EKG Data -: EKG Interpreted by Me (and Dr. Hatch ) <Pieter Simms - Last Filed: 04/03/20 02:57> - Lab Data Result diagrams: 04/03/20 02:37 04/03/20 02:37 <Soha Hatch - Last Filed: 04/03/20 07:19> - Medical Decision Making 24-year-old female patient went to ED for evaluation of dizziness/vertigo. Reports of ongoing for the last month. Any recent falls or trauma. Denies any other complaints. Pt signed out to Dr. Hatch pending labs. (Pieter Simms) Patient was reevaluated after taking Antivert. She reported that her vertigo was better she is feeling much better comfortable with plan for discharge home with prescription for Antivert. Patient will be referred to ENT for follow-up. (Soha Hatch) - Lab Data Lab Results 04/03/20 04/03/20 04/03/20 Range/Units 02:37 02:37 02:37 WBC 9.3 (3.8-10.6) k/uL RBC 4.70 (3.80-5.40) m/uL Hgb 13.8 (11.4-16.0) gm/dL Hct 41.2 (34.0-46.0) % MCV 87.7 (80.0-100.0) fL MCH 29.3 (25.0-35.0) pg MCHC 33.4 (31.0-37.0) g/dL RDW 13.4 (11.5-15.5) % Plt Count 286 (150-450) k/uL Neutrophils % 57 % Lymphocytes % 34 % Monocytes % 5 % Eosinophils % 3 % Basophils % 0 % Neutrophils # 5.3 (1.3-7.7) k/uL Lymphocytes # 3.1 (1.0-4.8) k/uL Monocytes # 0.5 (0-1.0) k/uL Eosinophils # 0.2 (0-0.7) k/uL Basophils # 0.0 (0-0.2) k/uL Sodium (137-145) mmol/L Potassium (3.5-5.1) mmol/L Chloride (98-107) mmol/L Carbon Dioxide (22-30) mmol/L Anion Gap mmol/L BUN (7-17) mg/dL Creatinine (0.52-1.04) mg/dL Est GFR (CKD-EPI)AfAm (>60 ml/min/1.73 sqM) Est GFR (CKD-EPI)NonAf (>60 ml/min/1.73 sqM) Glucose (74-99) mg/dL Calcium (8.4-10.2) mg/dL Magnesium (1.6-2.3) mg/dL Total Bilirubin (0.2-1.3) mg/dL AST (14-36) U/L ALT (4-34) U/L Alkaline Phosphatase (38-126) U/L Total Protein (6.3-8.2) g/dL Albumin (3.5-5.0) g/dL Urine Color Yellow Urine Appearance Cloudy H (Clear) Urine pH 6.0 (5.0-8.0) Ur Specific [place] 1.019 (1.001-1.035) Urine Protein Negative (Negative) Urine Glucose (UA) Negative (Negative) Urine Ketones Negative (Negative) Urine Blood Negative (Negative) Urine Nitrite Negative (Negative) Urine Bilirubin Negative (Negative) Urine Urobilinogen <2.0 (<2.0) mg/dL Ur Leukocyte Esterase Moderate H (Negative) Urine RBC 1 (0-5) /hpf Urine WBC 3 (0-5) /hpf Ur Squamous Epith Cells 8 H (0-4) /hpf Urine Bacteria Rare H (None) /hpf Urine Mucus Rare H (None) /hpf Urine HCG, Qual Not Detected (Not Detectd) 04/03/20 Range/Units 02:37 WBC (3.8-10.6) k/uL RBC (3.80-5.40) m/uL Hgb (11.4-16.0) gm/dL Hct (34.0-46.0) % MCV (80.0-100.0) fL MCH (25.0-35.0) pg MCHC (31.0-37.0) g/dL RDW (11.5-15.5) % Plt Count (150-450) k/uL Neutrophils % % Lymphocytes % % Monocytes % % Eosinophils % % Basophils % % Neutrophils # (1.3-7.7) k/uL Lymphocytes # (1.0-4.8) k/uL Monocytes # (0-1.0) k/uL Eosinophils # (0-0.7) k/uL Basophils # (0-0.2) k/uL Sodium 139 (137-145) mmol/L Potassium 4.1 (3.5-5.1) mmol/L Chloride 105 (98-107) mmol/L Carbon Dioxide 25 (22-30) mmol/L Anion Gap 9 mmol/L BUN 12 (7-17) mg/dL Creatinine 0.68 (0.52-1.04) mg/dL Est GFR (CKD-EPI)AfAm >90 (>60 ml/min/1.73 sqM) Est GFR (CKD-EPI)NonAf >90 (>60 ml/min/1.73 sqM) Glucose 113 H (74-99) mg/dL Calcium 9.5 (8.4-10.2) mg/dL Magnesium 1.9 (1.6-2.3) mg/dL Total Bilirubin 0.3 (0.2-1.3) mg/dL AST 18 (14-36) U/L ALT 14 (4-34) U/L Alkaline Phosphatase 132 H (38-126) U/L Total Protein 7.5 (6.3-8.2) g/dL Albumin 4.3 (3.5-5.0) g/dL Urine Color Urine Appearance (Clear) Urine pH (5.0-8.0) Ur Specific [place] (1.001-1.035) Urine Protein (Negative) Urine Glucose (UA) (Negative) Urine Ketones (Negative) Urine Blood (Negative) Urine Nitrite (Negative) Urine Bilirubin (Negative) Urine Urobilinogen (<2.0) mg/dL Ur Leukocyte Esterase (Negative) Urine RBC (0-5) /hpf Urine WBC (0-5) /hpf Ur Squamous Epith Cells (0-4) /hpf Urine Bacteria (None) /hpf Urine Mucus (None) /hpf Urine HCG, Qual (Not Detectd) - EKG Data EKG Comments: Ventricular rate 87, painful 174, QRS 84, QT/QTC 372/447. Normal sinus rhythm, normal EKG, no concern for acute ischemia. (Pieter Simms) Disposition <Pieter Simms - Last Filed: 04/03/20 02:57> Is patient prescribed a controlled substance at d/c from ED?: No <Soha Hatch P - Last Filed: 04/03/20 07:19> Clinical Impression: Vertigo Disposition: HOME SELF-CARE Condition: Stable Instructions (If sedation given, give patient instructions): Dizziness (ED) Prescriptions: Meclizine [Antivert] 12.5 mg PO Q8HR PRN #28 tablet PRN Reason: Vertigo Referrals: Esther Little MD [Primary Care Provider] - 1-2 days Olvin Rosenberg DO [Doctor of Osteopathic Medicine] - 1-2 days
[2020-04-03 03:01] LABS: Appearance,Urine Cloudy (Clear); Bacteria,Urine Rare /hpf; Bilirubin,Urine Negative (Negative); Blood,Urine Negative (Negative); Color,Urine Yellow; Glucose,Urine (UA) Negative (Negative); Ketones,Urine Negative (Negative); Leukocyte Esterase,Urine Moderate (Negative); Mucus,Urine Rare /hpf; Nitrite,Urine Negative (Negative); Protein,Urine Negative (Negative); RBC,Urine 1 /hpf (0-5); Specific Gravity,Urine 1.019 (1.001-1.035); Squamous Epithelial Cell,Urine 8 /hpf (0-4); Urobilinogen,Urine <2.0 mg/dL (<2.0); WBC,Urine 3 /hpf (0-5)
[2020-04-03 03:16] LABS: ALT 14 U/L (4-34); AST 18 U/L (14-36); African American GFR (CKD) >90 (>60 ml/min/1.73 sqM); Albumin 4.3 g/dL (3.5-5.0); Alkaline Phosphatase 132 U/L (38-126); Anion Gap 9 mmol/L; Blood Urea Nitrogen 12 mg/dL (7-17); Calcium 9.5 mg/dL (8.4-10.2); Carbon Dioxide 25 mmol/L (22-30); Chloride 105 mmol/L (98-107); Glucose 113 mg/dL (74-99); Magnesium 1.9 mg/dL (1.6-2.3); Non-African American GFR(CKD) >90 (>60 ml/min/1.73 sqM); Potassium 4.1 mmol/L (3.5-5.1); Sodium 139 mmol/L (137-145); Total Bilirubin 0.3 mg/dL (0.2-1.3); Total Protein 7.5 g/dL (6.3-8.2)
[2020-04-03 04:53] VITALS: BP 130/78; PULSE 90
== END 2020-04-03 04:52 | disposition home or self-care (01) ==
LOC: EC 01:49
DX: R42 Dizziness and giddiness (principal); F32.9 Major depressive disorder, single episode, unspecified; F41.9 Anxiety disorder, unspecified; Z87.891 Personal history of nicotine dependence; Z79.899 Other long term (current) drug therapy
CPT/HCPCS: 36415; 80053; 81001; 81025; 83735; 85025; 93005; 99284

== ENCOUNTER 2020-07-17 09:28 | Emergency (ER) | payer OTHER ==
[2020-07-17] MEDS ORDERED: KETOROLAC 15 MG/ML 1 ML VIAL IVP STA (10:15)
[2020-07-17] MEDS ORDERED: SODIUM CHLORIDE 0.9% 1,000 ML IV STA (10:15)
[2020-07-17] MEDS ORDERED: ONDANSETRON 4 MG/2 ML VIAL IVP STA (10:15)
--- NOTE | 2020-07-17 10:42 | ED ---
General Adult HPI - General Chief complaint: Nausea/Vomiting/Diarrhea Stated complaint: abd pain, nausea Time Seen by Provider: 07/17/20 09:44 Source: patient, family Mode of arrival: wheelchair Limitations: no limitations - History of Present Illness Initial comments: Patient is a 24-year-old female presenting to emergency Department with complaints of right upper quadrant abdominal pain, nausea and diarrhea that started last night. Patient states she did have a history of pancreatitis and has had gallstones. Patient states last night she is having epigastric and right upper quadrant pain, denies any radiation. She states she also started having diarrhea with mucus and nausea. She denies any vomiting. She denies any chest pain or shortness of breath. She denies any fever or chills. She denies any abdominal surgeries. She states that there is a chance of but she took a home test yesterday which was negative. She denies any recent antibiotic use. She denies history of C. diff. She has no further complaints at this time. Upon arrival to ER, patient's temp is 99.3, pulse is 117, 142/84, 99% on room air. - Related Data Home Medications Medication Instructions Recorded Confirmed Citalopram Hydrobromide [CeleXA] 20 mg PO HS 07/06/18 07/17/20 Ferrous Sulfate [Feosol] 325 mg PO HS 07/17/20 07/17/20 Previous Rx's Medication Instructions Recorded Azithromycin [Zithromax] 500 mg PO DAILY 5 Days #5 tab 07/17/20 Allergies Allergy/AdvReac Type Severity Reaction Status Date / Time No Known Allergies Allergy Verified 07/17/20 10:28 Review of Systems ROS Statement: Those systems with pertinent positive or pertinent negative responses have been documented in the HPI. ROS Other: All systems not noted in ROS Statement are negative. Past Medical History Past Medical History: No Reported History Additional Past Medical History / Comment(s): gallstones, vertigo, anemia, pancreatitis History of Any Multi-Drug Resistant Organisms: None Reported Past Surgical History: No Surgical Hx Reported Past Anesthesia/Blood Transfusion Reactions: No Reported Reaction Past Psychological History: Anxiety, Depression Smoking Status: Never smoker Past Alcohol Use History: Occasional Past Drug Use History: None Reported - Past Family History Mother Family Medical History: No Reported History General Exam - General Exam Comments Initial Comments: GENERAL: Patient is well-developed and well-nourished. Patient is nontoxic and in mild distress. HEAD: Atraumatic, normocephalic. EYES: Pupils equal round and reactive to light, extraocular movements intact, sclera anicteric, conjunctiva are normal. Eyelids were unremarkable. ENT: TMs normal, nares patent, oropharynx clear without exudates. Moist mucous membranes. NECK: Normal range of motion, supple without lymphadenopathy or JVD. LUNGS: Unlabored respirations. Breath sounds clear to auscultation bilaterally and equal. No wheezes rales or rhonchi. HEART: Regular rate and rhythm without murmurs, rubs or gallops. ABDOMEN: Generalized abdominal tenderness, increased epigastric and right upper quadrant. Positive [place] sign. Positive guarding. Soft, normoactive bowel sounds. No masses appreciated. : Deferred MUSCULOSKELETAL: Normal extremities with adequate strength and normal range of motion, no pitting or edema. No clubbing or cyanosis. NEUROLOGICAL: Patient is alert and oriented x 3. Motor and sensory are also intact. Cranial nerves II through XII grossly intact. Symmetrical smile. Normal speech, normal gait. PSYCH: Normal mood, normal affect. SKIN: Warm, Dry, normal turgor, no rashes or lesions noted. Limitations: no limitations Course Vital Signs 07/17/20 07/17/20 07/17/20 09:35 12:25 13:23 Temperature 99.3 F 98.4 F Pulse Rate 117 H 96 Respiratory 18 12 Rate Blood Pressure 142/84 128/76 O2 Sat by Pulse 99 99 Oximetry Medical Decision Making - Medical Decision Making Patient is a 24-year-old female here with epigastric, right upper quadrant pain and diarrhea since yesterday. Patient did arrive slightly tachycardia at 117, rest of vitals normal, afebrile. Denies any abdominal surgeries. Does have a history of pancreatitis. Labs show very slight white count at 10.8, lactic acid is normal at 1.1. Lipase is normal at 105, urine shows no evidence of infection, hCG is not detected. C. diff did come back as negative. Stool culture is pending. I did do CT of the abdomen shows at least 20 cm of hazy circumferential bowel wall thickening of the distal ileum, appendix is normal. Slightly represents infectious or inflammatory enteritis. Patient was given Toradol, Zofran and fluids. She is resting completely in the ER. I discussed these findings with the patient. I will start patient on azithromycin for possible infectious enteritis. Patient is agreement with this plan of care. She is stable for discharge. Return parameters were discussed with the patient she verbalized understanding. Case discussed with Dr. So. - Lab Data Result diagrams: 07/17/20 10:25 07/17/20 10:25 Lab Results 07/17/20 07/17/20 07/17/20 Range/Units 10:25 10:25 10:25 WBC 10.8 H (3.8-10.6) k/uL RBC 5.05 (3.80-5.40) m/uL Hgb 14.3 (11.4-16.0) gm/dL Hct 43.7 (34.0-46.0) % MCV 86.6 (80.0-100.0) fL MCH 28.3 (25.0-35.0) pg MCHC 32.7 (31.0-37.0) g/dL RDW 13.4 (11.5-15.5) % Plt Count 282 (150-450) k/uL Neutrophils % 86 % Lymphocytes % 8 % Monocytes % 4 % Eosinophils % 1 % Basophils % 0 % Neutrophils # 9.3 H (1.3-7.7) k/uL Lymphocytes # 0.9 L (1.0-4.8) k/uL Monocytes # 0.4 (0-1.0) k/uL Eosinophils # 0.1 (0-0.7) k/uL Basophils # 0.0 (0-0.2) k/uL PT (9.0-12.0) sec INR (<1.2) APTT (22.0-30.0) sec Sodium 137 (137-145) mmol/L Potassium 4.5 (3.5-5.1) mmol/L Chloride 105 (98-107) mmol/L Carbon Dioxide 22 (22-30) mmol/L Anion Gap 10 mmol/L BUN 12 (7-17) mg/dL Creatinine 0.56 (0.52-1.04) mg/dL Est GFR (CKD-EPI)AfAm >90 (>60 ml/min/1.73 sqM) Est GFR (CKD-EPI)NonAf >90 (>60 ml/min/1.73 sqM) Glucose 121 H (74-99) mg/dL Plasma Lactic Acid [place] (0.7-2.0) mmol/L Calcium 9.6 (8.4-10.2) mg/dL Total Bilirubin 0.7 (0.2-1.3) mg/dL AST 20 (14-36) U/L ALT 15 (4-34) U/L Alkaline Phosphatase 136 H (38-126) U/L Total Protein 8.3 H (6.3-8.2) g/dL Albumin 4.6 (3.5-5.0) g/dL Amylase 39 (30-110) U/L Lipase 105 (23-300) U/L Urine Color Light Yellow Urine Appearance Clear (Clear) Urine pH 6.0 (5.0-8.0) Ur Specific [place] 1.020 (1.001-1.035) Urine Protein Negative (Negative) Urine Glucose (UA) Negative (Negative) Urine Ketones Negative (Negative) Urine Blood Negative (Negative) Urine Nitrite Negative (Negative) Urine Bilirubin Negative (Negative) Urine Urobilinogen <2.0 (<2.0) mg/dL Ur Leukocyte Esterase Trace H (Negative) Urine RBC <1 (0-5) /hpf Urine WBC 4 (0-5) /hpf Ur Squamous Epith Cells 3 (0-4) /hpf Urine Bacteria Rare H (None) /hpf Urine Mucus Rare H (None) /hpf Urine HCG, Qual (Not Detectd) C. difficile (EIA) Intrp (Negative) 07/17/20 07/17/20 07/17/20 Range/Units 10:25 10:25 10:25 WBC (3.8-10.6) k/uL RBC (3.80-5.40) m/uL Hgb (11.4-16.0) gm/dL Hct (34.0-46.0) % MCV (80.0-100.0) fL MCH (25.0-35.0) pg MCHC (31.0-37.0) g/dL RDW (11.5-15.5) % Plt Count (150-450) k/uL Neutrophils % % Lymphocytes % % Monocytes % % Eosinophils % % Basophils % % Neutrophils # (1.3-7.7) k/uL Lymphocytes # (1.0-4.8) k/uL Monocytes # (0-1.0) k/uL Eosinophils # (0-0.7) k/uL Basophils # (0-0.2) k/uL PT 10.2 (9.0-12.0) sec INR 1.0 (<1.2) APTT 25.0 (22.0-30.0) sec Sodium (137-145) mmol/L Potassium (3.5-5.1) mmol/L Chloride (98-107) mmol/L Carbon Dioxide (22-30) mmol/L Anion Gap mmol/L BUN (7-17) mg/dL Creatinine (0.52-1.04) mg/dL Est GFR (CKD-EPI)AfAm (>60 ml/min/1.73 sqM) Est GFR (CKD-EPI)NonAf (>60 ml/min/1.73 sqM) Glucose (74-99) mg/dL Plasma Lactic Acid [place] 1.1 (0.7-2.0) mmol/L Calcium (8.4-10.2) mg/dL Total Bilirubin (0.2-1.3) mg/dL AST (14-36) U/L ALT (4-34) U/L Alkaline Phosphatase (38-126) U/L Total Protein (6.3-8.2) g/dL Albumin (3.5-5.0) g/dL Amylase (30-110) U/L Lipase (23-300) U/L Urine Color Urine Appearance (Clear) Urine pH (5.0-8.0) Ur Specific [place] (1.001-1.035) Urine Protein (Negative) Urine Glucose (UA) (Negative) Urine Ketones (Negative) Urine Blood (Negative) Urine Nitrite (Negative) Urine Bilirubin (Negative) Urine Urobilinogen (<2.0) mg/dL Ur Leukocyte Esterase (Negative) Urine RBC (0-5) /hpf Urine WBC (0-5) /hpf Ur Squamous Epith Cells (0-4) /hpf Urine Bacteria (None) /hpf Urine Mucus (None) /hpf Urine HCG, Qual Not Detected (Not Detectd) C. difficile (EIA) Intrp (Negative) 07/17/ Range/Units 10:25 WBC (3.8-10.6) k/uL RBC (3.80-5.40) m/uL Hgb (11.4-16.0) gm/dL Hct (34.0-46.0) % MCV (80.0-100.0) fL MCH (25.0-35.0) pg MCHC (31.0-37.0) g/dL RDW (11.5-15.5) % Plt Count (150-450) k/uL Neutrophils % % Lymphocytes % % Monocytes % % Eosinophils % % Basophils % % Neutrophils # (1.3-7.7) k/uL Lymphocytes # (1.0-4.8) k/uL Monocytes # (0-1.0) k/uL Eosinophils # (0-0.7) k/uL Basophils # (0-0.2) k/uL PT (9.0-12.0) sec INR (<1.2) APTT (22.0-30.0) sec Sodium (137-145) mmol/L Potassium (3.5-5.1) mmol/L Chloride (98-107) mmol/L Carbon Dioxide (22-30) mmol/L Anion Gap mmol/L BUN (7-17) mg/dL Creatinine (0.52-1.04) mg/dL Est GFR (CKD-EPI)AfAm (>60 ml/min/1.73 sqM) Est GFR (CKD-EPI)NonAf (>60 ml/min/1.73 sqM) Glucose (74-99) mg/dL Plasma Lactic Acid [place] (0.7-2.0) mmol/L Calcium (8.4-10.2) mg/dL Total Bilirubin (0.2-1.3) mg/dL AST (14-36) U/L ALT (4-34) U/L Alkaline Phosphatase (38-126) U/L Total Protein (6.3-8.2) g/dL Albumin (3.5-5.0) g/dL Amylase (30-110) U/L Lipase (23-300) U/L Urine Color Urine Appearance (Clear) Urine pH (5.0-8.0) Ur Specific [place] (1.001-1.035) Urine Protein (Negative) Urine Glucose (UA) (Negative) Urine Ketones (Negative) Urine Blood (Negative) Urine Nitrite (Negative) Urine Bilirubin (Negative) Urine Urobilinogen (<2.0) mg/dL Ur Leukocyte Esterase (Negative) Urine RBC (0-5) /hpf Urine WBC (0-5) /hpf Ur Squamous Epith Cells (0-4) /hpf Urine Bacteria (None) /hpf Urine Mucus (None) /hpf Urine HCG, Qual (Not Detectd) C. difficile (EIA) Intrp Negative (Negative) Disposition Clinical Impression: Abdominal pain, Diarrhea, Enteritis Disposition: HOME SELF-CARE Condition: Stable Instructions (If sedation given, give patient instructions): Acute Diarrhea (ED) Additional Instructions: Please return to the Emergency Department if symptoms worsen or any other concerns. Workup today reveals inflammation of the small intestine times. Take antibiotic as directed. Follow-up with PCP as needed. Follow up with GI if symptoms persist. Prescriptions: Azithromycin [Zithromax] 500 mg PO DAILY 5 Days #5 tab Is patient prescribed a controlled substance at d/c from ED?: No Referrals: None,Stated [Primary Care Provider] - 1-2 days Candice Fajardo MD [STAFF PHYSICIAN] - 1-2 days
[2020-07-17 10:49] LABS: Basophils % (A) 0 %; Eosinophils # (A) 0.1 k/uL (0-0.7); Eosinophils % (A) 1 %; HCT 43.7 % (34.0-46.0); HGB 14.3 gm/dL (11.4-16.0); Lymphocytes # (A) 0.9 k/uL (1.0-4.8); Lymphocytes % (A) 8 %; MCH 28.3 pg (25.0-35.0); MCHC 32.7 g/dL (31.0-37.0); MCV 86.6 fL (80.0-100.0); Mean Platelet Volume 7.5; Monocytes # (A) 0.4 k/uL (0-1.0); Monocytes % (A) 4 %; Neutrophils # (A) 9.3 k/uL (1.3-7.7); Neutrophils % (A) 86 %; Platelet Count 282 k/uL (150-450); RBC 5.05 m/uL (3.80-5.40); RDW 13.4 % (11.5-15.5); WBC 10.8 k/uL (3.8-10.6)
[2020-07-17 10:57] LABS: ALT 15 U/L (4-34); AST 20 U/L (14-36); African American GFR (CKD) >90 (>60 ml/min/1.73 sqM); Albumin 4.6 g/dL (3.5-5.0); Alkaline Phosphatase 136 U/L (38-126); Amylase 39 U/L (30-110); Anion Gap 10 mmol/L; Blood Urea Nitrogen 12 mg/dL (7-17); Calcium 9.6 mg/dL (8.4-10.2); Carbon Dioxide 22 mmol/L (22-30); Chloride 105 mmol/L (98-107); Glucose 121 mg/dL (74-99); Non-African American GFR(CKD) >90 (>60 ml/min/1.73 sqM); Potassium 4.5 mmol/L (3.5-5.1); Sodium 137 mmol/L (137-145); Total Bilirubin 0.7 mg/dL (0.2-1.3); Total Protein 8.3 g/dL (6.3-8.2)
[2020-07-17 10:58] LABS: Prothrombin Time 10.2 sec (9.0-12.0)
[2020-07-17 11:12] LABS: Appearance,Urine Clear (Clear); Bacteria,Urine Rare /hpf; Bilirubin,Urine Negative (Negative); Blood,Urine Negative (Negative); Color,Urine Light Yellow; Glucose,Urine (UA) Negative (Negative); Ketones,Urine Negative (Negative); Leukocyte Esterase,Urine Trace (Negative); Mucus,Urine Rare /hpf; Nitrite,Urine Negative (Negative); Protein,Urine Negative (Negative); RBC,Urine <1 /hpf (0-5); Squamous Epithelial Cell,Urine 3 /hpf (0-4); Urobilinogen,Urine <2.0 mg/dL (<2.0); WBC,Urine 4 /hpf (0-5)
--- NOTE | 2020-07-17 12:04 | CT ---
EXAMINATION TYPE: CT abdomen pelvis w con DATE OF EXAM: 07/17/2020 COMPARISON: CT chest abdomen pelvis 05/19/2019. HISTORY: Abd pain CT DLP: 1161.2 mGycm Automated exposure control for dose reduction was used. TECHNIQUE: Helical acquisition of images was performed from the lung bases through the pelvis. CONTRAST: Performed without Oral Contrast and with IV Contrast, patient injected with 100 mL of Isovue 300. FINDINGS: LUNG BASES: Normal. LIVER: Normal. BILIARY SYSTEM: No intrahepatic or extrahepatic biliary ductal dilatation. Gallbladder is contracted. PANCREAS: Normal. SPLEEN: Normal. ADRENALS: Normal. KIDNEYS: Normal. BOWEL: No of obstruction. There is at least 20 cm of hazy circumferential bowel wall thickening of t he distal ileum and terminal ileum. Appendix is normal. PERITONEUM: No pneumoperitoneum. Trace pelvic free fluid is likely physiologic. LYMPH NODES: There are prominent right lower quadrant mesenteric lymph nodes measuring up to 7 mm. PELVIS: Normal. VASCULATURE: No abdominal aortic aneurysm. MUSCULOSKELETAL: Likely a limbus vertebrae of L4, which appears well-corticated. No acute osseous ab normality. Sacroiliac joints are unremarkable. IMPRESSION: Distal ileum and terminal ileum circumferential hazy bowel wall thickening with right lower quadrant adenopathy. Findings likely represent infectious or inflammatory enteritis.
[2020-07-17 12:26] VITALS: BP 128/76; PULSE 96; RESP 12
[2020-07-17] MEDS ORDERED: ONDANSETRON 4 MG ODT STARTER PACK 2 TAB BTL PO STA (13:03)
[2020-07-17 13:25] VITALS: TEMP 98.4
== END 2020-07-17 13:25 | disposition home or self-care (01) ==
LOC: EC 09:28
DX: K52.9 Noninfective gastroenteritis and colitis, unspecified (principal); Z32.02 Encounter for pregnancy test, result negative; F41.9 Anxiety disorder, unspecified; F32.9 Major depressive disorder, single episode, unspecified; Z79.899 Other long term (current) drug therapy
CPT/HCPCS: 36415; 80053; 82150; 83605; 83690; 85025; 85610; 85730; 81001; 81025; 87324; 87045; 83630; 87046; 74177; 99284; 96374; 96375; 96361 ×2; J2405; J1885; S0119; Q9967

== ENCOUNTER 2022-08-09 14:20 | Inpatient (IN) | payer OTHER ==
[2022-08-09 14:48] LABS: Glucose,Whole Blood 119 mg/dL (70-110)
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
--- NOTE | 2022-08-09 14:52 | XR ---
EXAMINATION TYPE: XR chest 1V portable DATE OF EXAM: 08/09/2022 COMPARISON: NONE HISTORY: Chest pain TECHNIQUE: Single frontal view of the chest is obtained. FINDINGS: There is no focal air space opacity, pleural effusion, or pneumothorax seen. The cardiac silhouette size is within normal limits. The osseous structures are intact. IMPRESSION: 1. No acute process.
--- NOTE | 2022-08-09 14:53 | XR ---
EXAMINATION TYPE: XR pelvis AP view DATE OF EXAM: 08/09/2022 CLINICAL HISTORY: pain TECHNIQUE: Single view the pelvis is submitted. FINDINGS: No evidence for fracture, dislocation or bony lesion. Joint spaces are well-preserved. S I joints appear symmetric. IMPRESSION: 1. No acute fracture or dislocation seen. ICD 10 NO FRACTURE, INITIAL EVALUATION
[2022-08-09 14:59] LABS: Basophils % (A) 0 %; Eosinophils # (A) 0.1 k/uL (0-0.7); Eosinophils % (A) 1 %; HCT 37.9 % (34.0-46.0); HGB 12.4 gm/dL (11.4-16.0); Lymphocytes # (A) 2.9 k/uL (1.0-4.8); Lymphocytes % (A) 17 %; MCH 27.5 pg (25.0-35.0); MCHC 32.7 g/dL (31.0-37.0); MCV 84.2 fL (80.0-100.0); Monocytes # (A) 0.6 k/uL (0-1.0); Monocytes % (A) 3 %; Neutrophils # (A) 12.7 k/uL (1.3-7.7); Neutrophils % (A) 77 %; Platelet Count 285 k/uL (150-450); RDW 14.3 % (11.5-15.5); WBC 16.5 k/uL (3.8-10.6)
[2022-08-09 15:04] LABS: ALT 21 U/L (4-34); AST 29 U/L (14-36); African American GFR (CKD) >90 (>60 ml/min/1.73 sqM); Albumin 4.3 g/dL (3.5-5.0); Alcohol <10 mg/dL; Alkaline Phosphatase 127 U/L (38-126); Anion Gap 8 mmol/L; Blood Urea Nitrogen 16 mg/dL (7-17); Calcium 8.6 mg/dL (8.4-10.2); Carbon Dioxide 23 mmol/L (22-30); Chloride 105 mmol/L (98-107); Glucose 124 mg/dL (74-99); Non-African American GFR(CKD) >90 (>60 ml/min/1.73 sqM); Potassium 3.7 mmol/L (3.5-5.1); Sodium 136 mmol/L (137-145); Total Bilirubin 0.3 mg/dL (0.2-1.3); Total Protein 7.4 g/dL (6.3-8.2)
[2022-08-09 15:09] LABS: Partial Thromboplastin Time 23.1 sec (22.0-30.0); Prothrombin Time 11.3 sec (9.0-12.0)
[2022-08-09] MEDS ORDERED: HYDROmorphone 1 MG/ML 1 ML SYRINGE IVP STA ×2 (15:23→16:23)
[2022-08-09] MEDS ORDERED: ONDANSETRON 4 MG/2 ML VIAL IVP STA (15:24)
[2022-08-09] MEDS ORDERED: fentaNYL (PF) 50 MCG/ML 2 ML AMP IVP PRN (15:26)
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
--- NOTE | 2022-08-09 15:44 | XR ---
EXAMINATION TYPE: XR ankle complete LT DATE OF EXAM: 08/09/2022 COMPARISON: NONE HISTORY: Pain TECHNIQUE: 3 views of the left ankle are submitted for evaluation. FINDINGS: There is no evidence for fracture or dislocation. Ankle mortise is intact. Lateral soft tis romario calcifications are chronic in nature. IMPRESSION: 1. No evidence for acute fracture.
[2022-08-09] MEDS ORDERED: NALOXONE 0.4 MG/ML 1 ML VIAL IV PRN (16:43)
[2022-08-09] MEDS ORDERED: ONDANSETRON 4 MG/2 ML VIAL IVP PRN (16:43)
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
[2022-08-09] MEDS: HYDROmorphone 1 MG/ML 1 ML SYRINGE IVP PRN ×2 (18:35→21:35)
[2022-08-09 19:11] LABS: Appearance,Urine Clear (Clear); Bilirubin,Urine Negative (Negative); Blood,Urine Negative (Negative); Color,Urine Yellow; Glucose,Urine (UA) Negative (Negative); Ketones,Urine 1+ (Negative); Leukocyte Esterase,Urine Negative (Negative); Nitrite,Urine Negative (Negative); Protein,Urine Trace (Negative); Urobilinogen,Urine <2.0 mg/dL (<2.0)
[2022-08-09 19:19] LABS: Amphetamine Screen,Urine Not Detected (NotDetected); Barbiturate Screen,Urine Not Detected (NotDetected); Benzodiazepines Screen,Urine Not Detected (NotDetected); Cocaine Screen,Urine Not Detected (NotDetected); Methadone Screen, Urine Not Detected (NotDetected); Opiate Screen,Urine Detected (NotDetected); Oxycodone Screen, Urine Not Detected (NotDetected); Phencyclidine Screen,Urine Not Detected (NotDetected); Tricyclic Antidepressant,Urine Not Detected (NotDetected); Urn Cannabinoid Scrn Not Detected (NotDetected)
[2022-08-09 19:21] LABS: Specific Gravity,Urine >1.050 (1.001-1.035)
[2022-08-09] MEDS: SERTRALINE 100 MG TAB PO SCH (21:32)
[2022-08-10] MEDS: HYDROmorphone 1 MG/ML 1 ML SYRINGE IVP PRN ×8 (00:32→23:13)
[2022-08-10] MEDS: ONDANSETRON 4 MG/2 ML VIAL IVP PRN (03:08)
[2022-08-10] MEDS ORDERED: CYCLOBENZAPRINE 10 MG TAB PO PRN (08:53)
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
[2022-08-10 09:26] LABS: African American GFR (CKD) >90 (>60 ml/min/1.73 sqM); Anion Gap 10 mmol/L; Blood Urea Nitrogen 15 mg/dL (7-17); Calcium 8.7 mg/dL (8.4-10.2); Carbon Dioxide 22 mmol/L (22-30); Chloride 106 mmol/L (98-107); Glucose 109 mg/dL (74-99); Non-African American GFR(CKD) >90 (>60 ml/min/1.73 sqM); Potassium 4.5 mmol/L (3.5-5.1); Sodium 138 mmol/L (137-145)
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
[2022-08-10] MEDS: HYDROcodone/APAP 5-325MG 1 EACH TAB PO PRN ×4 (10:38→22:38)
[2022-08-10 12:46] LABS: Basophils # (A) 0.02 X 10*3/uL (0.00-0.10); Basophils % (A) 0.2 %; Eosinophils # (A) 0.01 X 10*3/uL (0.04-0.35); Eosinophils % (A) 0.1 %; HCT 38.9 % (37.2-46.3); HGB 11.9 g/dL (12.0-15.0); Immature Grans, Automated 0.3 %; Lymphocytes # (A) 1.53 X 10*3/uL (0.90-5.00); Lymphocytes % (A) 16.5 %; MCH 25.8 pg (27.0-32.0); MCHC 30.6 g/dL (32.0-37.0); MCV 84.4 fL (80.0-97.0); Mean Platelet Volume 10.3 fL (9.5-12.2); Monocytes # (A) 0.59 X 10*3/uL (0.20-1.00); Monocytes % (A) 6.4 %; NRBC Per 100 WBC 0 /100 WBCS (0.0-0.0); Neutrophils # (A) 7.08 X 10*3/uL (1.80-7.70); Neutrophils % (A) 76.5 %; Platelet Count 295 X 10*3/uL (140-440); RBC 4.61 X 10*6/uL (4.10-5.20); RDW 14.6 % (11.5-14.5); WBC 9.26 X 10*3/uL (4.50-10.00)
[2022-08-10] MEDS: SERTRALINE 100 MG TAB PO SCH (20:03)
[2022-08-10] MEDS ORDERED: diphenhydrAMINE 25 MG CAP PO STA (22:21)
[2022-08-11] MEDS: ONDANSETRON 4 MG/2 ML VIAL IVP PRN (01:23)
[2022-08-11] MEDS: HYDROmorphone 1 MG/ML 1 ML SYRINGE IVP PRN ×3 (03:58→11:34)
[2022-08-11] MEDS: HYDROcodone/APAP 5-325MG 1 EACH TAB PO PRN ×3 (09:40→23:30)
--- NOTE | 2022-08-11 12:47 | P.PN ---
Progress Note - Text Progress Note Date: 08/11/22 Patient [place] stable. She has completed back pain. On exam vital signs are stable. Abdomen is soft. There is no significant tenderness. Patient is cleared from a general surgical standpoint. We will sign off.
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
[2022-08-11] MEDS ORDERED: SENNOSIDES-DOCUSATE SODIUM 1 EACH TAB PO STA (21:06)
[2022-08-11] MEDS: SERTRALINE 100 MG TAB PO SCH (21:07)
[2022-08-12] MEDS: HYDROmorphone 1 MG/ML 1 ML SYRINGE IVP PRN ×4 (02:37→20:54)
[2022-08-12] MEDS: HYDROcodone/APAP 5-325MG 1 EACH TAB PO PRN ×3 (05:44→23:45)
[2022-08-12] MEDS: SENNOSIDES-DOCUSATE SODIUM 1 EACH TAB PO SCH (08:21)
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
[2022-08-12] MEDS: SERTRALINE 100 MG TAB PO SCH (20:54)
[2022-08-13] MEDS: HYDROmorphone 1 MG/ML 1 ML SYRINGE IVP PRN ×3 (02:12→20:03)
[2022-08-13] MEDS: HYDROcodone/APAP 5-325MG 1 EACH TAB PO PRN ×3 (05:30→17:46)
[2022-08-13] MEDS: SENNOSIDES-DOCUSATE SODIUM 1 EACH TAB PO SCH (08:09)
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
[2022-08-13] MEDS ORDERED: MAGNESIUM HYDROXIDE 2,400 MG/10 ML CUP PO PRN (18:04)
[2022-08-13 19:57] VITALS: RESP 16
[2022-08-13] MEDS: SERTRALINE 100 MG TAB PO SCH (20:03)
[2022-08-14] MEDS: HYDROcodone/APAP 5-325MG 1 EACH TAB PO PRN ×3 (00:27→12:35)
[2022-08-14] MEDS: SENNOSIDES-DOCUSATE SODIUM 1 EACH TAB PO SCH (08:12)
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
[2022-08-14] MEDS ORDERED: bisacodyL 5 MG TABLET.DR PO PRN (11:10)
[2022-08-14 11:30] VITALS: BP 103/68; PULSE 89; TEMP 98.3
[2022-08-14 12:42] VITALS: BMI 36.6
== END 2022-08-14 15:25 | disposition home or self-care (01) | DRG 552 ==
LOC: EC 14:20 → 5NMEDONC 16:47
PROVIDERS: ADMIT Orthopaedic Surgery Orthopaedic Surgery of the Spine; ATTEND Orthopaedic Surgery Orthopaedic Surgery of the Spine
PROC: 2W35X3Z Immobilization of Back using Brace (ICD-10-PCS; principal; 2022-08-09)
DX: S32.011A Stable burst fracture of first lumbar vertebra, initial encounter for closed fracture (principal); S93.402A Sprain of unspecified ligament of left ankle, initial encounter; V47.5XXA Car driver injured in collision with fixed or stationary object in traffic accident, initial encounter; Y92.410 Unspecified street and highway as the place of occurrence of the external cause; F41.9 Anxiety disorder, unspecified; F32.A Depression, unspecified; E66.9 Obesity, unspecified; Z68.36 Body mass index [BMI] 36.0-36.9, adult; M62.830 Muscle spasm of back
CPT/HCPCS: 36415; 70450; 71045; 71260; 72125; 72132; 72148; 72170; 74177; 80048; 80053; 80306; 80320; 81003; 81025; 83605; 84484; 85025; 85610; 85730; 86850; 86900; 86901; 93005; 96374; 96375; 96376; 99291

== ENCOUNTER → 2023-04-04 | Outpatient (CLI) | payer OTHER ==
--- NOTE | 2023-04-04 18:18 | US ---
EXAMINATION TYPE: Ultrasound OB <= 14 week fetus DATE OF EXAM: 04/04/2023 4:14 PM COMPARISON: NONE CLINICAL INDICATION: Female, 27 years old with history of Z36.89 ENCOUNTER FOR OTHER SPECIFIED ANTENA AMI SCREENING; Viability. . EXAM PERFORMED: Transabdominal (TA) EXAM MEASUREMENTS: GESTATIONAL AGE / DATING Physician Established: Not yet established. Dates by LMP: (12 weeks/5 days) EDC: 10/12/2023 Dates by First Scan: This is first scan Dates by Current Scan for: (13 weeks/0 days) EDC: 10/10/2023 MATERNAL ANATOMY Uterus: 11.7 x 7.9 x 7.5 cm Right Ovary: 3.6 x 2.1 x 1.6 cm Left Ovary: 3.0 x 1.8 x 1.1 cm Post CDS / Adnexa: Appear wnl Presence of free fluid: None Presence of corpus luteal cyst: Not seen Presence of subchorionic bleed: Not seen GESTATION / SURVEY CRL: 6.56 m (13 weeks/0 days) Yolk Sac (normal less than 6mm): Not seen Heart Rate: 152 bpm Rhythm: Normal IUP: Viable IUP Nuchal Translucency 10-14wks (normal less than 3mm): Not well visualized Date of LMP: 01/05/2023 Beta HcG (if available): Not available IMPRESSION: Single live intrauterine with estimated gestational age of 12 weeks 5 days by LMP. Current ultrasound biometry is concordant at 13 weeks 0 days. Complete survey recommended at 18-20 week s.
[2023-04-04 20:12] LABS: Glucose 93 mg/dL (70-110)
[2023-04-04 20:13] LABS: HCT 39.7 % (37.2-46.3); HGB 12.9 d/dL (12.0-15.0); MCH 27.7 pg (27.0-32.0); MCHC 32.5 d/dL (32.0-37.0); MCV 85.4 FL (80.0-97.0); Mean Platelet Volume 11.8 FL (9.5-12.2); NRBC Per 100 WBC 0 X 10*3/uL (0.00-0.01); Platelet Count 249 X 10*3/uL (140-440); RBC 4.65 X 10*6/uL (4.10-5.20); RDW 14.3 % (11.5-14.5)
[2023-04-04 20:21] LABS: Hepatitis B Surface Antigen Nonreactive; Hepatitis C IgG Antibody Nonreactive
[2023-04-04 21:50] LABS: HIV 2 AB Non-Reactive (Non-Reactive); HIV AB P24 Non-Reactive (Non-Reactive); HIV P24 AG Non-Reactive (Non-Reactive)
[2023-04-05 06:11] LABS: Toxoplasma Antibody (IgG) <3.0 IU/mL (<7.2); Toxoplasma Antibody (IgM) <3.0 AU/mL (<8.0)
== END | disposition home or self-care (01) ==
LOC: RADUSWWP 15:50
PROVIDERS: ATTEND Obstetrics & Gynecology
DX: Z36.89 Encounter for other specified antenatal screening (principal); Z34.82 Encounter for supervision of other normal pregnancy, second trimester; R53.83 Other fatigue; Z3A.12 12 weeks gestation of pregnancy
CPT/HCPCS: 76801; 82565; 82947; 85027; 86762; 86777; 86778; 86780; 86803; 86850; 86900; 86901; 87340; 87390